=== PATIENT | male | born 1945 | race African-American/Black ===

== ENCOUNTER 2017-02-13 15:43 | Inpatient (IN) | payer MEDICARE ==
[~2017-02-13] VITALS: Ht 175.3 cm; Wt 62.5 kg
[2017-02-13 15:44] VITALS: BP 129/71; PULSE 74; RESP 16; TEMP 99.2; O2SAT 98
--- NOTE | 2017-02-13 16:01 | PD ---
Physical Exam Date Seen by Provider: Feb 13, 2017 Time Seen by Provider: 15:58 Narrative 71 YOBM C/O KIDNEY FAILURE. SENT BY DR MAKI FOR EVAIL. BLOOD WORK SAT. NO CP /SOB/N/V, NOPEDAL EDEMA VS REVIEWED AWAITING BED PLACEMENT Data Data Last Documented VS Vital Signs Date Time Temp Pulse Resp B/P Pulse Ox O2 Delivery O2 Flow Rate FiO2 02/13/17 15:44 99.2 74 16 129/71 98 Room Air MDM Supervised Visit with NIMA: No Scripts No Active Prescriptions or Reported Meds Condition: Domingo Boothe Feb 13, 2017 16:01
--- NOTE | 2017-02-13 20:44 | PD ---
HPI Chief Complaint: Abnormal Results Time Seen by Provider: 20:38 Travel History International Travel<30 days: No Contact w/Intl Traveler<30days: No Traveled to known affect area: No History of Present Illness HPI PATIENT PER SE HAS NO ACTUAL COMPLAINT, BUT dr boucher received abnormal labs suggesting renal failure over weekend, patient advised to come in [facility] Past Medical History Diminished Hearing: No Musculoskeletal: Yes (history of gouty arthritis muscle strains) Immunizations Current: No Social History Alcohol Use: Yes (8 BEERS EVERY DAY) Tobacco Use: Yes (CHEW TOBACCO ) Substance Use: No (DENIES ) Allergies-Medications (Allergen,Severity, Reaction): Coded Allergies: No Known Allergies (Verified , 02/13/17) Reported Meds & Prescriptions Reported Meds & Active Scripts Active Reported Vitamin D-1000 (Cholecalciferol) 1,000 Unit Tab Unknown Dose PO DAILY Vitamin A15-Bkhyo Acid (Cobalamine Combinations) 500-400 Mcg Tab 1 Tab PO DAILY Review of Systems Except as stated in HPI: all other systems reviewed are Neg Physical Exam Narrative GENERAL: SKIN: Warm and dry. HEAD: Atraumatic. Normocephalic. EYES: Pupils equal and round. No scleral icterus. No injection or drainage. ENT: No nasal bleeding or discharge. Mucous membranes pink and moist. NECK: Trachea midline. No JVD. CARDIOVASCULAR: Regular rate and rhythm. RESPIRATORY: No accessory muscle use. Clear to auscultation. Breath sounds equal bilaterally. GASTROINTESTINAL: Abdomen soft, non-tender, nondistended. MUSCULOSKELETAL: Extremities without clubbing, cyanosis, or edema. No obvious deformities. NEUROLOGICAL: Awake and alert. No obvious cranial nerve deficits. Motor grossly within normal limits. Five out of 5 muscle strength in the arms and legs. Normal speech. PSYCHIATRIC: Appropriate mood and affect; insight and judgment normal. Data Data Last Documented VS Vital Signs Date Time Temp Pulse Resp B/P Pulse Ox O2 Delivery O2 Flow Rate FiO2 02/13/17 21:00 47 18 196/79 100 Room Air 02/13/17 15:44 99.2 Orders Electrocardiogram (02/13/17 20:40) Complete Blood Count With Diff (02/13/17 20:40) Comprehensive Metabolic Panel (02/13/17 20:40) Prothrombin Time / Inr (Pt) (02/13/17 20:40) Act Partial Throm Time (Ptt) (02/13/17 20:40) Magnesium (Mg) (02/13/17 20:40) Phosphorus (Po4) (02/13/17 20:40) Chest, Single Ap (02/13/17 20:40) Sodium Chlor 0.9% 1000 Ml Inj (Ns 1000 M (02/13/17 22:01) Admit Order (Ed Use Only) (02/13/17 22:08) Labs Laboratory Tests Test 02/13/17 20:52 White Blood Count 7.7 TH/MM3 Red Blood Count 3.10 MIL/MM3 Hemoglobin 8.2 GM/DL Hematocrit 25.9 % Mean Corpuscular Volume 83.4 FL Mean Corpuscular Hemoglobin 26.5 PG Mean Corpuscular Hemoglobin 31.8 % Concent Red Cell Distribution Width 15.0 % Platelet Count 272 TH/MM3 Mean Platelet Volume 9.4 FL Neutrophils (%) (Auto) 59.4 % Lymphocytes (%) (Auto) 30.1 % Monocytes (%) (Auto) 7.5 % Eosinophils (%) (Auto) 2.3 % Basophils (%) (Auto) 0.7 % Neutrophils # (Auto) 4.6 TH/MM3 Lymphocytes # (Auto) 2.3 TH/MM3 Monocytes # (Auto) 0.6 TH/MM3 Eosinophils # (Auto) 0.2 TH/MM3 Basophils # (Auto) 0.1 TH/MM3 CBC Comment DIFF FINAL Differential Comment Prothrombin Time 11.2 SEC Prothromb Time International 1.0 RATIO Ratio Activated Partial 26.6 SEC Thromboplast Time Sodium Level 142 MEQ/L Potassium Level 3.9 MEQ/L Chloride Level 113 MEQ/L Carbon Dioxide Level 18.8 MEQ/L Anion Gap 10 MEQ/L Blood Urea Nitrogen 59 MG/DL Creatinine 5.45 MG/DL Estimat Glomerular Filtration 13 ML/MIN Rate Random Glucose 95 MG/DL Calcium Level 8.6 MG/DL Phosphorus Level 4.6 MG/DL Magnesium Level 1.8 MG/DL Total Bilirubin 0.4 MG/DL Aspartate Amino Transf 7 U/L (AST/SGOT) Alanine Aminotransferase 8 U/L (ALT/SGPT) Alkaline Phosphatase 49 U/L Total Protein 8.0 GM/DL Albumin 3.1 GM/DL Reticulocyte Count 0.7 % Absolute Reticulocyte Count 21.9 MIL/L MDM Medical Decision Making Medical Screen Exam Complete: Yes Emergency Medical Condition: Yes Medical Record Reviewed: Yes Differential Diagnosis lab error v true renal failure v dehydration v electrolyte abnl Narrative Course PATIENT'S REPEAT LABS DID CONFIRM RENAL FAILURE HOWEVER NO RECENT BLOOD WORK TO ASSESS ACUTENESS OF CONDITION, BUT DID NOTICE ANEMIA WHICH IS C/W CHRONIC KIDNEY DISEASE, PT ASYMPTOMATIC BUT SUSPECT ACUTE ON CHRONIC WORSENING, WITHOUT HYPERKALEMIA Diagnosis Primary Impression: Acute kidney injury superimposed on CKD Admitting Information Admitting Physician Requests: Observation Condition: Stable Romeo Blue MD Feb 13, 2017 20:44
[2017-02-13] MEDS ORDERED: VITA1000 PO (20:46)
[2017-02-13] MEDS ORDERED: VITATAB43 PO (20:46)
[2017-02-13 21:00] VITALS: BP 196/79; PULSE 47; RESP 18; O2SAT 100
--- NOTE | 2017-02-13 21:02 | RADRPT ---
EXAM DATE/TIME: 02/13/2017 20:52 [facility] COMPARISON: CHEST SINGLE AP, August 21, 2013, 23:50. INDICATIONS : Palpitations. Dr dov cortez kidney complaint. MEDICAL HISTORY : None. SURGICAL HISTORY : None. ENCOUNTER: Initial ACUITY: 1 day PAIN SCORE: 0/10 LOCATION: Bilateral chest FINDINGS: A single view of the chest demonstrates the lungs to be symmetrically aerated without evidence of mas s, infiltrate or effusion. The cardiomediastinal contours are unremarkable. Osseous structures are intact. CONCLUSION: No evidence of acute cardiopulmonary disease. Deo Mendenhall MD on February 13, 2017 at 21:00 Board Certified Radiologist. This report was verified electronically.
[2017-02-13 21:33] LABS: AUTOMATED NEUTROPHIL # 4.6 TH/MM3 (1.8-7.7); BASOPHIL # 0.1 TH/MM3 (0-0.2); BASOPHIL % 0.7 % (0.0-2.0); EOSINOPHIL # 0.2 TH/MM3 (0-0.4); EOSINOPHIL % 2.3 % (0.0-4.0); HEMATOCRIT 25.9 % (39.0-51.0); HEMO FLAGS DIFF FINAL; LYMPH % 30.1 % (9.0-44.0); LYMPHOCYTE # 2.3 TH/MM3 (1.0-4.8); MEAN CELL VOLUME 83.4 FL (80.0-100.0); MEAN CORPUSCULAR HEMOGLOBIN 26.5 PG (27.0-34.0); MEAN CORPUSCULAR HGB CONC 31.8 % (32.0-36.0); MONO % 7.5 % (0.0-8.0); NEUT % 59.4 % (16.0-70.0); PLATELET COUNT 272 TH/MM3 (150-450); WHITE BLOOD COUNT 7.7 TH/MM3 (4.0-11.0)
[2017-02-13 21:43] LABS: APTT (PATIENT) 26.6 SEC (24.3-30.1); PROTHROMBIN TIME - PATIENT 11.2 SEC (9.8-11.6)
[2017-02-13 21:55] LABS: ANION GAP 10 MEQ/L (5-15); AST (GOT) 7 U/L (15-37); BICARBONATE 18.8 MEQ/L (21.0-32.0); BLOOD UREA NITROGEN 59 MG/DL (7-18); CHLORIDE 113 MEQ/L (98-107); GLOMERULAR FILTRATION RATE 13 ML/MIN (>89); MAGNESIUM 1.8 MG/DL (1.5-2.5); POTASSIUM 3.9 MEQ/L (3.5-5.1); SODIUM (NA) 142 MEQ/L (136-145)
[2017-02-13 22:00] LABS: ALKALINE PHOSPHATASE 49 U/L (45-117); ALT (GPT) 8 U/L (12-78); TOTAL BILIRUBIN ADULT 0.4 MG/DL (0.2-1.0)
[2017-02-13] MEDS ORDERED: SODIUM CHLOR 0.9% 1000 ML INJ 1,000 ML IV SCH (22:01)
[2017-02-13 23:00] VITALS: BP 183/79; PULSE 51; RESP 16; O2SAT 100
[2017-02-13] MEDS ORDERED: SODIUM CHLORIDE 0.9% FLUSH 10 ML FLUSH IV FLUSH PRN (23:30)
[2017-02-13] MEDS ORDERED: ONDANSETRON HCL 4 MG/2 ML VIAL IVP PRN (23:30)
[2017-02-13] MEDS ORDERED: ACETAMINOPHEN 325 MG TAB PO PRN (23:30)
[2017-02-13] MEDS ORDERED: NALOXONE HCL 0.4 MG/ML AMP IV PRN (23:30)
[2017-02-13 23:44] VITALS: BP 199/83; PULSE 50; RESP 18; O2SAT 100
[2017-02-14] VITALS (9 sets, daily range): BP systolic 121–200; BP diastolic 63–89; PULSE 45–74; RESP 18; TEMP 97.1–98.7; O2SAT 98–100
[2017-02-14 00:07] LABS: RETIC % 0.7 % (0.4-3.0); REVIEW FLAG FINAL
--- NOTE | 2017-02-14 00:16 | EKG ---
Date Performed: 02/13/2017 Time Performed: 20:54:37 PTAGE: 71 years EKG: SINUS BRADYCARDIA BORDERLINE LEFT AXIS DEVIATION VOLTAGE CRITERIA FOR LVH ABNORMAL ECG PREVIOUS TRACING : 02/13/2017 20.53 Compared to the previous tracing, rate has decreased and cr itieria for LVH now noted DOCTOR: Yehuda Dunbar Interpretating Date/Time 02/14/2017 00:16:02
[2017-02-14] MEDS: cloNIDine HCL 0.1 MG TAB PO PRN ×2 (00:35→08:13)
[2017-02-14] MEDS: HEPARIN SODIUM - SQ 10,000 UNITS/ML VIAL SQ SCH ×2 (08:13→22:13)
[2017-02-14 08:19] LABS: AUTOMATED NEUTROPHIL # 3.5 TH/MM3 (1.8-7.7); BASOPHIL % 0.8 % (0.0-2.0); EOSINOPHIL # 0.2 TH/MM3 (0-0.4); EOSINOPHIL % 3.2 % (0.0-4.0); HEMATOCRIT 23.1 % (39.0-51.0); HEMO FLAGS DIFF FINAL; LYMPH % 32.4 % (9.0-44.0); MEAN CELL VOLUME 81.8 FL (80.0-100.0); MEAN CORPUSCULAR HEMOGLOBIN 28.1 PG (27.0-34.0); MEAN CORPUSCULAR HGB CONC 34.3 % (32.0-36.0); MONO % 7.5 % (0.0-8.0); NEUT % 56.1 % (16.0-70.0); PLATELET COUNT 213 TH/MM3 (150-450); RED BLOOD COUNT 2.83 MIL/MM3 (4.50-5.90); RED CELL DISTRIBUTION WIDTH 14.5 % (11.6-17.2); WHITE BLOOD COUNT 6.2 TH/MM3 (4.0-11.0)
[2017-02-14] MEDS: SODIUM CHLORIDE 0.9% FLUSH 10 ML FLUSH IV FLUSH SCH ×2 (08:20→22:13)
[2017-02-14 08:32] LABS: ANION GAP 11 MEQ/L (5-15); BICARBONATE 18.5 MEQ/L (21.0-32.0); BLOOD UREA NITROGEN 56 MG/DL (7-18); CHLORIDE 115 MEQ/L (98-107); GLOMERULAR FILTRATION RATE 13 ML/MIN (>89); POTASSIUM 3.7 MEQ/L (3.5-5.1); SODIUM (NA) 144 MEQ/L (136-145)
[2017-02-14 08:57] LABS: FERRITIN 296 NG/ML (26-388); TRANSFERRIN IRON PROFILE 183 MG/DL (200-360)
[2017-02-14] MEDS ORDERED: cloNIDine HCL 0.1 MG TAB PO PRN (09:15)
[2017-02-14] MEDS ORDERED: PILL SPLITTER OTHER PRN (09:30)
[2017-02-14] MEDS: FERROUS SULFATE 325 MG (65 MG ELEMENTAL IRON) TAB PO SCH ×2 (09:44→22:13)
[2017-02-14] MEDS: FOLIC ACID 1 MG TAB PO SCH (09:44)
[2017-02-14] MEDS: CYANOCOBALAMIN 1,000 MCG TAB PO SCH (09:44)
--- NOTE | 2017-02-14 09:51 | MH ---
cc: JAMARI KEITA MD DATE OF ADMISSION 02/13/2017 CHIEF COMPLAINT Abnormal labs high BUN, creatinine sent from the PCP office. BUN was 56, creatinine was 5.24. HISTORY OF PRESENT ILLNESS This is a 71-year-old -Luxembourger male with past medical-surgical history significant for gouty arthritis not taking any medication who came to the ER at [facility] with abnormal labs with a BUN of 56, creatinine of 5.24 and 5.45 around that area. The patient denies a history of any kidney problems. The patient denies any chest pain, shortness of breath, any abnormal bleeding in the urine or any painful urination, or burning urination. Denies any decreased urination. Denies any fever, chills or cough. Denies any chest pain. Denies any sore throat. Denies any nausea, vomiting, diarrhea, constipation. Denies any complaint. Other than that, nothing significant. PAST MEDICAL HISTORY As dictated above. PAST SURGICAL HISTORY Nothing significant. SOCIAL HISTORY He drink a beer every day and chews tobacco and denies any drug abuse. He lives at home with his . He is retired. FAMILY HISTORY Nothing significant. ALLERGIES NO KNOWN DRUG ALLERGIES. MEDICATIONS None REVIEW OF SYSTEMS All review of systems are negative. PHYSICAL EXAMINATION This is a 71-year male laying on the bed not in acute distress. VITAL SIGNS: Temperature 97.5, heart rate 48, respiration 18, blood pressure 196/89, O2 saturation 98% room air. HEENT: Normocephalic, atraumatic. EOMI. PERRL. Oral mucosa moist. NECK: Supple. No visible thyromegaly or neck mass. Trachea central. CVS: Regular rate and rhythm. Respiration is clear to auscultation bilaterally. ABDOMEN: Soft, nontender. Bowel sounds audible. EXTREMITIES: No pedal edema. No cyanosis or clubbing. Full range of motion of all extremities. NEUROLOGIC: Awake, alert, and oriented x4. No focal deficits. SKIN: Warm and dry. PSYCH: The patient is cooperative. Mood and affect is normal. LABORATORY DATA CBC shows a WBC count of 6.2, RBC count is low 2.83, hemoglobin 7.9 low, hematocrit 23.1 low. PT 11.0, INR and APTT 26.1. BMP shows sodium of 144, potassium of 3.7, chloride 115 high, and carbon 18.5 low, BUN 56 high, creatinine 5.24 high, GFR 30 low, calcium 8.3 low, iron 29 low, iron saturation 11.3 low, TIBC 256. LFTs are normal. Albumin 3.1 low, B12 is 1367 high, folate 10.7 normal. Chest x-ray was done shows no evidence of acute abnormality. ASSESSMENT AND PLAN This is a 71-year male who came to the ER diagnosed with: 1. Acute renal failure, etiology is unknown. Nephrology consulted. Further recommendation per nephrology. 2. Anemia. The patient has iron deficiency. The patient started on an iron pill and I also check fecal occult blood test to rule out GI bleed. 3. A history of arthritis. 4. DVT prophylaxis, heparin 5000 units subcutaneous twice a day. 5. GI prophylaxis Protonix 40 mg. 6. Hypertension. The patient started on Norvasc 10 mg p.o. daily and also clonidine 0.1 mg p.o. q. 6-hour if BP above 160/90. 7. I am going to manage the patient on a daily basis and make Recommendations on a daily basis. Jamari Keita MD EA/MARY /9:15 AM /9:38 AM
--- NOTE | 2017-02-14 10:42 | RADRPT ---
EXAM DATE/TIME: 02/14/2017 09:11 1[facility] COMPARISON: No previous studies available for comparison. INDICATIONS : Increased BUN/Creatinine levels. MEDICAL HISTORY : Hypertension. Renal failure. Prostate cancer. Gout. SURGICAL HISTORY : Bilateral cataract repair. ENCOUNTER: Initial ACUITY: 1 day PAIN SCORE: 2/10 LOCATION: Bilateral flank MEASUREMENTS: RIGHT KIDNEY: 12.5 x 6.2 x 6.2 cm LEFT KIDNEY: 11.6 x 5.3 x 6.3 cm FINDINGS: RIGHT KIDNEY: There is moderate hydronephrosis with dilatation of collecting system and renal pelvis. There is no f ocal mass or calculi identified. LEFT KIDNEY: There is moderate hydronephrosis with dilatation of collecting system and renal pelvis. There is no f ocal mass or calculi identified. BLADDER: The bladder demonstrates trabeculation of portions of the wall without distinct mass. There is a cyst ic structure along the right side of the bladder measuring up to 3.8 x 3.4 x 3.6 cm. CONCLUSION: 1. Moderate bilateral hydronephrosis. 2. Abnormal bladder with trabeculation and wall thickening without distinct mass. 3. Cystic structure along the right side of the bladder.of unclear significance. Freddy Livingston MD on February 14, 2017 at 10:38 Board Certified Radiologist. This report was verified electronically.
[2017-02-14 10:45] LABS: BLOOD, URINE SMALL (NEG); COMMENT (UR) CULT NOT INDICATED; CULTURE IF INDICATED CULT NOT INDICATED; GLUCOSE,URINE NEG (NEG); KETONE, URINE NEG (NEG); NITRITE,URINE NEG (NEG); SQUAMOUS EPITHELIAL CELL URINE <1 /hpf (0-5); URINE COLOR LIGHT-YELLOW (YELLW/STRAW)
[2017-02-14] MEDS: PANTOPRAZOLE SOD 40 MG DELAYED RELEASE TAB PO SCH (11:53)
[2017-02-14] MEDS: SENNOSIDES 8.6 MG TAB PO PRN (11:54)
--- NOTE | 2017-02-14 15:27 | PD.CONS ---
[facility] Service Nephrology Consult Requested By Reason for Consult Acute on CKD Primary Care Physician Erik Chisholm III, MD History of Present Illness This is a quiet 71 y/o AAM who is here with his at bedside. He was sent in by PCP for evaluation of renal failure. In 2013 his creatinine was 1.0, in November it measured 2.6 with GFR of 27, consistent with CKD 4. He came today with no physical complaints. Creatinine here measured 5.45 that improved to 5.24 today. He also has a metabolic acidosis with C02 of 18. He has not had proteinuria in the past. His was able to provide a copy of labs from 2016 that I am referencing. Included is a PSA of 8, noted anemia with Hb of 8.7. This morning we had the nurse perform a bladder scan that revealed retention with over 450 ml urine, therefore a santamaria was placed. Renal US also showing moderate bilateral hydronephrosis. There is only a history of gout and vitamin D deficiency reported. He is also anemic here with Hb 7.9, denies dark stool or other bleeding. We were consulted for renal management. He is also noted to be hypertensive this admission. (Kenyatta Gramajo) Review of Systems Constitutional: COMPLAINS OF: Fatigue, DENIES: Change in appetite Genitourinary: COMPLAINS OF: Urinary frequency, Urgency, Dysuria, Nocturia Musculoskeletal: DENIES: Joint pain (Kenyatta Gramajo) Past Family Social History Allergies: Coded Allergies: No Known Allergies (Verified , 02/13/17) Past Medical History Gouty arthritis appears to have CKD 4, in November his creatinine was 2.6,, GFR 27 elevated PSA vitamin D deficiency anemia Past Surgical History None Reported Medications Vitamin B12 Vitamin D3 Active Ordered Medications Current Medications Medications (Trade) Dose Ordered Sig/Jade Route Start Time Stop Time Status Last Admin (NS Flush) 2 ml UNSCH PRN IV FLUSH 02/13/17 23:30 (NS Flush) 2 ml BID IV FLUSH 02/14/17 09:00 02/14/17 08:20 (Tylenol) 650 mg Q4H PRN PO 02/13/17 23:30 (Zofran Inj) 4 mg Q6H PRN IVP 02/13/17 23:30 (Heparin Inj) 5,000 units Q12H SQ 02/14/17 09:00 02/14/17 08:13 (Narcan Inj) 0.4 mg UNSCH PRN IV 02/13/17 23:30 (Milk Of Magnesia Liq) 30 ml Q12H PRN PO 02/13/17 23:30 (Senokot) 17.2 mg Q12H PRN PO 02/13/17 23:30 02/14/17 11:54 (Catapres) 0.1 mg Q6H PRN PO 02/14/17 09:15 (Folate) 1 mg DAILY PO 02/14/17 09:15 02/14/17 09:44 (Norvasc) 10 mg DAILY PO 02/14/17 09:15 02/14/17 09:44 (Ferrous Sulfate) 325 mg BID PO 02/14/17 09:30 02/14/17 09:44 (Vitamin B12) 500 mcg DAILY PO 02/14/17 09:21 02/14/17 09:44 (Pill Splitter) 1 ea UNSCH PRN OTHER 02/14/17 09:30 (Protonix) 40 mg DAILY PO 02/14/17 11:15 02/14/17 11:53 Family History No hx of renal disorders Social History he chews tobacco, no cigarette smoking former ETOH, no use in past 2 months 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 full code (Kenyatta Gramajo) Physical Exam Vital Signs Vital Signs Date Time Temp Pulse Resp B/P Pulse Ox O2 Delivery O2 Flow Rate FiO2 02/14/17 13:05 98.1 50 18 180/83 100 02/14/17 07:56 97.5 48 18 196/89 98 02/14/17 03:20 98.7 46 18 194/84 100 02/14/17 02:16 44 16 182/83 100 02/14/17 01:47 45 180/84 02/14/17 00:40 97.1 51 18 200/83 100 Room Air 02/14/17 00:03 21 02/13/17 23:44 50 18 199/83 100 Room Air 02/13/17 23:00 51 16 183/79 100 Room Air 02/13/17 21:00 47 18 196/79 100 Room Air 02/13/17 15:44 99.2 74 16 129/71 98 Room Air Physical Exam Elderly AAM sitting up in bed awake, alert, oriented but quiet and slow to respond CV: S1/S2, RRR no murmurs Lungs: clear Abd: soft, non tender Ext: no edema, distal pulses intact Laboratory Laboratory Tests Test 02/13/17 02/14/17 02/14/17 20:52 07:34 09:15 White Blood Count 7.7 6.2 Red Blood Count 3.10 2.83 Hemoglobin 8.2 7.9 Hematocrit 25.9 23.1 Mean Corpuscular Volume 83.4 81.8 Mean Corpuscular Hemoglobin 26.5 28.1 Mean Corpuscular Hemoglobin 31.8 34.3 Concent Red Cell Distribution Width 15.0 14.5 Platelet Count 272 213 Mean Platelet Volume 9.4 9.3 Neutrophils (%) (Auto) 59.4 56.1 Lymphocytes (%) (Auto) 30.1 32.4 Monocytes (%) (Auto) 7.5 7.5 Eosinophils (%) (Auto) 2.3 3.2 Basophils (%) (Auto) 0.7 0.8 Neutrophils # (Auto) 4.6 3.5 Lymphocytes # (Auto) 2.3 2.0 Monocytes # (Auto) 0.6 0.5 Eosinophils # (Auto) 0.2 0.2 Basophils # (Auto) 0.1 0.0 CBC Comment DIFF FINAL DIFF FINAL Differential Comment Prothrombin Time 11.2 Prothromb Time International 1.0 Ratio Activated Partial 26.6 Thromboplast Time Sodium Level 142 144 Potassium Level 3.9 3.7 Chloride Level 113 115 Carbon Dioxide Level 18.8 18.5 Anion Gap 10 11 Blood Urea Nitrogen 59 56 Creatinine 5.45 5.24 Estimat Glomerular Filtration 13 13 Rate Random Glucose 95 74 Calcium Level 8.6 8.3 Phosphorus Level 4.6 Magnesium Level 1.8 Total Bilirubin 0.4 Aspartate Amino Transf 7 (AST/SGOT) Alanine Aminotransferase 8 (ALT/SGPT) Alkaline Phosphatase 49 Total Protein 8.0 Albumin 3.1 Reticulocyte Count 0.7 Absolute Reticulocyte Count 21.9 Iron Level 29 Total Iron Binding Capacity 256 Percent Iron Saturation 11.3 Ferritin 296 Vitamin B12 Level 1367 Folate 10.7 Urine Color LIGHT-YELLOW Urine Turbidity CLEAR Urine pH 5.0 Urine Specific [place] 1.007 Urine Protein NEG Urine Glucose (UA) NEG Urine Ketones NEG Urine Occult Blood SMALL Urine Nitrite NEG Urine Bilirubin NEG Urine Urobilinogen LESS THAN 2.0 Urine Leukocyte Esterase SMALL Urine RBC 1 Urine WBC 3 Urine Squamous Epithelial <1 Cells Microscopic Urinalysis Comment CULT NOT INDICATED (Kenyatta Gramajo) Result Diagram: 02/14/17 0734 02/14/17 0734 Imaging Last 72 hours Impressions Renal Ultrasound 02/14/17 0000 Signed Impressions: Service Date/Time: Tuesday, February 14, 2017 09:11 - CONCLUSION: 1. Moderate bilateral hydronephrosis. 2. Abnormal bladder with trabeculation and wall thickening without distinct mass. 3. Cystic structure along the right side of the bladder.of unclear significance. Freddy Livingston MD Chest X-Ray 02/13/172039 Signed Impressions: Service Date/Time: Monday, February 13, 2017 20:52 - CONCLUSION: No evidence of acute cardiopulmonary disease. Deo Mendenhall MD (Kenyatta Gramajo) Assessment and Plan Problem List: (1) Acute kidney injury superimposed on CKD Plan: It appears he has CKD 4, with no prior proteinuria may have underlying nephrosclerosis HAI from obstructive uropathy, renal US report reviewed a Santamaria was placed, now has developed hematuria likely due to bladder stretching I will start Flomax 0.4 mg daily he has elevated PSA, may need urology evaluation acidosis should improve as renal function recovers he does not require IVF repeat renal panel in AM, follow urine output avoid nephrotoxic medications serum electrophoresis has been ordered, also check serum phosphorus level (2) Anemia Plan: He has evidence of iron deficiency give IV venofer and follow Hb stool for occult bleeding has been ordered (3) Hypertension Plan: he is not on antihypertensives at home noted to be bradycardic here, stop clonidine he is on Norvasc, start hydralazine and titrate as needed avoid MARTINA currently (Kenyatta Gramajo) Assessment and Plan patient was seen and examined. Agree with above assessment and plan. I discussed with the patient and his . I have independently reviewed previous labs supplied by the . His creatinine was about 2.6 in November. I ordered bladder scan and renal US. There is evidence of obstructive uropathy. Also, he has elevated PSA. Patient had Santamaria placed. May need Urology evaluation as he may have prostate cancer. Monitor renal function, anemia, and BP (Brenden Lora MD) Kenyatta GramajoP Feb 14, 2017 15:27 Brenden Lora MD Feb 14, 2017 18:12
[2017-02-14] MEDS: IRON SUCROSE INJ 100 MG in SODIUM CHLORIDE 0.9% INJ 100 ML IV SCH (16:47)
[2017-02-14 17:00] LABS: TOTAL PROTEIN SPE 6.8 GM/DL (6.0-7.6)
[2017-02-14] MEDS: hydrALAZINE HCL 10 MG TAB PO SCH (22:14)
[2017-02-14 22:32] LABS: ALBUMIN SPE 3.43 GM/DL (3.50-5.00); ALPHA 1 GLOBULIN 0.25 GM/DL (0.11-0.29); ALPHA 2 GLOBULIN 0.63 GM/DL (0.22-1.00); BETA GLOBULINS (SPE) 0.8 GM/DL (0.53-1.03)
[2017-02-15 01:23] VITALS: BP 137/71; PULSE 67; RESP 17; TEMP 97.7; O2SAT 98
[2017-02-15] MEDS: hydrALAZINE HCL 10 MG TAB PO SCH ×3 (05:43→21:50)
[2017-02-15 06:28] LABS: AUTOMATED NEUTROPHIL # 6.9 TH/MM3 (1.8-7.7); BASOPHIL # 0.1 TH/MM3 (0-0.2); BASOPHIL % 0.5 % (0.0-2.0); EOSINOPHIL # 0.2 TH/MM3 (0-0.4); EOSINOPHIL % 2.2 % (0.0-4.0); HEMATOCRIT 22.7 % (39.0-51.0); HEMO FLAGS DIFF FINAL; LYMPH % 20.7 % (9.0-44.0); LYMPHOCYTE # 2.1 TH/MM3 (1.0-4.8); MEAN CELL VOLUME 82.4 FL (80.0-100.0); MEAN CORPUSCULAR HEMOGLOBIN 26.9 PG (27.0-34.0); MEAN CORPUSCULAR HGB CONC 32.6 % (32.0-36.0); MONO % 7.5 % (0.0-8.0); NEUT % 69.1 % (16.0-70.0); PLATELET COUNT 268 TH/MM3 (150-450); RED BLOOD COUNT 2.75 MIL/MM3 (4.50-5.90); RED CELL DISTRIBUTION WIDTH 14.6 % (11.6-17.2); WHITE BLOOD COUNT 9.9 TH/MM3 (4.0-11.0)
[2017-02-15 06:52] LABS: ANION GAP 10 MEQ/L (5-15); AST (GOT) 5 U/L (15-37); BICARBONATE 19.5 MEQ/L (21.0-32.0); BLOOD UREA NITROGEN 61 MG/DL (7-18); CHLORIDE 114 MEQ/L (98-107); GLOMERULAR FILTRATION RATE 15 ML/MIN (>89); POTASSIUM 3.5 MEQ/L (3.5-5.1); SODIUM (NA) 143 MEQ/L (136-145)
[2017-02-15 06:55] LABS: ALKALINE PHOSPHATASE 46 U/L (45-117); ALT (GPT) 7 U/L (12-78); TOTAL BILIRUBIN ADULT 0.6 MG/DL (0.2-1.0)
[2017-02-15 08:00] VITALS: BP 140/69; PULSE 64; RESP 19; TEMP 97.5; O2SAT 98
[2017-02-15] MEDS: SODIUM CHLORIDE 0.9% FLUSH 10 ML FLUSH IV FLUSH SCH ×2 (09:00→21:53)
[2017-02-15] MEDS: IRON SUCROSE INJ 100 MG in SODIUM CHLORIDE 0.9% INJ 100 ML IV SCH (09:16)
[2017-02-15] MEDS: HEPARIN SODIUM - SQ 10,000 UNITS/ML VIAL SQ SCH ×2 (09:16→21:53)
[2017-02-15] MEDS: PANTOPRAZOLE SOD 40 MG DELAYED RELEASE TAB PO SCH (09:17)
[2017-02-15] MEDS: FOLIC ACID 1 MG TAB PO SCH (09:17)
[2017-02-15] MEDS: CYANOCOBALAMIN 1,000 MCG TAB PO SCH (09:17)
[2017-02-15] MEDS: FERROUS SULFATE 325 MG (65 MG ELEMENTAL IRON) TAB PO SCH ×2 (09:17→21:50)
--- NOTE | 2017-02-15 09:52 | HHI.PR ---
Subjective History of Present Illness Patient feel weak and tired nephrology input noted work up in progress still high BUN / Creatinine. HAI from obstructive uropathy, renal US report reviewed a Montoya was placed, now has developed hematuria likely due to bladder stretching , started Flomax 0.4 mg daily, follow urine output, avoid nephrotoxic medications serum electrophoresis has been ordered, also check serum phosphorus level, acidosis should improve as renal function recovers, elevated PSA, may need urology evaluation Review of Systems Constitutional Constitutional: Fatigue, Weakness Vitals/Results Intake & Output 02/14/17 02/14/17 02/15/17 14:59 22:59 06:59 Intake Total 280 ml Output Total 650 ml 1100 ml 1000 ml Balance -650 ml -1100 ml -720 ml Intake Oral 280 ml Output Urine Total 650 ml 1100 ml 1000 ml Bladder Scan Volume Amount 467 ml 467 ml Vital Signs Vital Signs Date Time Temp Pulse Resp B/P Pulse Ox O2 Delivery O2 Flow Rate FiO2 02/15/17 01:23 97.7 67 17 137/71 98 02/14/17 23:41 98 02/14/17 19:41 98.7 69 18 121/63 99 02/14/17 17:42 98.1 74 18 122/65 99 02/14/17 13:05 98.1 50 18 180/83 100 CBC/BMP: 02/15/17 0549 02/15/17 0549 Lab Results Laboratory Tests Test 02/14/17 02/15/17 14:55 05:49 Total Protein 6.8 GM/DL 7.6 GM/DL Albumin 3.43 GM/DL 2.8 GM/DL Albumin/Globulin Ratio 1.02 Ieiqe-7-Ycmhlbfbd 0.25 GM/DL Nogxu-1-Zimlnzhcr 0.63 GM/DL Beta Globulins 0.80 GM/DL Gamma Globulins 1.69 GM/DL White Blood Count 9.9 TH/MM3 Red Blood Count 2.75 MIL/MM3 Hemoglobin 7.4 GM/DL Hematocrit 22.7 % Mean Corpuscular Volume 82.4 FL Mean Corpuscular Hemoglobin 26.9 PG Mean Corpuscular Hemoglobin 32.6 % Concent Red Cell Distribution Width 14.6 % Platelet Count 268 TH/MM3 Mean Platelet Volume 8.9 FL Neutrophils (%) (Auto) 69.1 % Lymphocytes (%) (Auto) 20.7 % Monocytes (%) (Auto) 7.5 % Eosinophils (%) (Auto) 2.2 % Basophils (%) (Auto) 0.5 % Neutrophils # (Auto) 6.9 TH/MM3 Lymphocytes # (Auto) 2.1 TH/MM3 Monocytes # (Auto) 0.7 TH/MM3 Eosinophils # (Auto) 0.2 TH/MM3 Basophils # (Auto) 0.1 TH/MM3 CBC Comment DIFF FINAL Differential Comment Sodium Level 143 MEQ/L Potassium Level 3.5 MEQ/L Chloride Level 114 MEQ/L Carbon Dioxide Level 19.5 MEQ/L Anion Gap 10 MEQ/L Blood Urea Nitrogen 61 MG/DL Creatinine 4.75 MG/DL Estimat Glomerular Filtration 15 ML/MIN Rate Random Glucose 87 MG/DL Calcium Level 8.3 MG/DL Phosphorus Level 3.8 MG/DL Total Bilirubin 0.6 MG/DL Aspartate Amino Transf 5 U/L (AST/SGOT) Alanine Aminotransferase 7 U/L (ALT/SGPT) Alkaline Phosphatase 46 U/L Physical Exam General General Appearance: No Acute Distress, Comfortable Eyes Eye Exam: Sclera White, Extraocular Movement Intact Throat Throat Exam: Oral Mucosa [place] & Moist, Oral Pharynx Normal Neck Neck Exam: Neck Supple, Trachea Midline Pulmonary Resp Exam: Clear Bilaterally, Breath Sounds Equal, No Distress Cardiology CV Exam: Regular, Normal Sinus Rhythm Gastrointestinal/Abdomen GI Exam: Soft, Non-Tender, Bowel Sounds Present Musculoskeletal MS Exam: Joints Intact Integumentary Skin Exam: Clear, Warm, Dry Neurologic Neuro Exam: Alert, Awake, Oriented, Speech Clear, Moving All Extremities, No Focal Deficits VTE Prophylaxis VTE Prophylaxis Meds: Heparin PUD Prophylasis PUD Prophylaxis: Protonix Assessment/Plan Assessment/Plan ASSESSMENT AND PLAN This is a 71-year male who came to the ER diagnosed with: 1. Acute renal failure, etiology is unknown. Nephrology input noted.Per nephrology HAI from obstructive uropathy, renal US report reviewed, a Montoya was placed, developed hematuria likely due to bladder stretching, started Flomax 0.4 mg daily, follow urine output, avoid nephrotoxic medications serum electrophoresis has been ordered, also check serum phosphorus level, acidosis should improve as renal function recovers, elevated PSA, need urology evaluation consulted urology. Further recommendation per nephrology. 2. Anemia. The patient has iron deficiency. The patient started on an iron oral and IV and I also check fecal occult blood test to rule out GI bleed. on B12 and Folic acid replacement. 3. A history of arthritis. 4. DVT prophylaxis, heparin 5000 units subcutaneous twice a day. 5. GI prophylaxis Protonix 40 mg. 6. Hypertension. The patient started on Norvasc 10 mg p.o. daily and also clonidine 0.1 mg p.o. q. 6-hour if BP above 160/90. I am going to manage the patient on a daily basis and make Recommendations on a daily basis. Discussed Condition with: Patient Jamari Whitlock MD Feb 15, 2017 09:52
[2017-02-15 11:14] VITALS: O2SAT 98
[2017-02-15 12:00] VITALS: BP_SYST 121; BP_SYST 140; BP_DIAS 59; BP_DIAS 64; PULSE 60; PULSE 75; RESP 19; RESP 20; TEMP 98.1; TEMP 98.3; O2SAT 100; O2SAT 96
--- NOTE | 2017-02-15 15:46 | HHI.NPPN ---
Subjective General Problems: Anemia Renal Failure: Chronic, Acute, Stage IV Interval History He appears comfortable. Creatinine is better. He is non oliguric. (Kenyatta Gramajo) Review of Systems General Constitutional: Fatigue (Kenyatta Gramajo) Objective Data Data 02/14/17 02/15/17 19:00 07:00 Intake Total 280 ml Output Total 1750 ml 1000 ml Balance -1750 ml -720 ml Intake Oral 280 ml Output Urine Total 1750 ml 1000 ml Bladder Scan Volume Amount 467 ml 467 ml Vital Signs Date Time Temp Pulse Resp B/P Pulse Ox O2 Delivery O2 Flow Rate FiO2 02/15/17 12:00 98.1 75 20 140/64 96 02/15/17 11:14 98 02/15/17 08:00 97.5 64 19 140/69 98 02/15/17 01:23 97.7 67 17 137/71 98 02/14/17 23:41 98 02/14/17 19:41 98.7 69 18 121/63 99 02/14/17 17:42 98.1 74 18 122/65 99 (Kenyatta Gramajo) -: 02/15/17 0549 02/15/17 0549 Microbiology 02/15/17 Stool Occult Blood (ARUNA) - Final, Complete HEMOCCULT NEGATIVE Imaging Last 72 hours Impressions Renal Ultrasound 02/14/17 0000 Signed Impressions: Service Date/Time: Tuesday, February 14, 2017 09:11 - CONCLUSION: 1. Moderate bilateral hydronephrosis. 2. Abnormal bladder with trabeculation and wall thickening without distinct mass. 3. Cystic structure along the right side of the bladder.of unclear significance. Freddy Livingston MD Chest X-Ray 02/13/172039 Signed Impressions: Service Date/Time: Monday, February 13, 2017 20:52 - CONCLUSION: No evidence of acute cardiopulmonary disease. Deo Mendenhall MD Tubes & Lines: Santamaria (Kenyatta Gramajo) Physical Exam General Appearance: Well Developed, No Acute Distress, Comfortable (Kenyatta Gramajo) Eyes Eye Exam: Sclera White, Extraocular Movement Intact (Kenyatta Gramajo) Throat Throat Exam: Oral Mucosa [place] & Moist, Oral Pharynx Normal (Kenyatta Gramajo) Neck Neck Exam: Neck Supple, Trachea Midline (Kenyatta Gramajo) Pulmonary Resp Exam: Clear Bilaterally, Breath Sounds Equal, No Distress (Kenyatta Gramajo) Cardiology CV Exam: Regular, Normal Sinus Rhythm (Kenyatta Gramajo) Gastrointestinal/Abdomen GI Exam: Soft, Non-Tender, Bowel Sounds Present (Kenyatta Gramajo) Musculoskeletal MS Exam: Joints Intact, Normal Tone, Good Strength (Kenyatta Gramajo) Integumentary Skin Exam: Clear, Warm, Dry, Intact (Kenyatta Gramajo) Extremeties Extremities Exam: No Edema, Pedal Pulses Palpable (Kenyatta Gramajo) Neurologic Neuro Exam: Alert, Awake, Oriented, Speech Clear, Moving All Extremities, No Focal Deficits (Kenyatta Gramajo) Psychiatric Psych Exam: Appropriate Responses (Kenyatta Gramajo) PUD Prophylasis PUD Prophylaxis: Protonix (Kenyatta Gramajo) Assessment/Plan Discussed Condition With: Patient Assessment Summary: Anemia of CKD, Hypertension, CKD Stage IV Problem List: (1) Acute kidney injury superimposed on CKD Plan: It appears he has underlying CKD 4, with no prior proteinuria suggesting underlying nephrosclerosis HAI from obstructive uropathy, s/p santamaria placement he is on flomax urology called for elevated PSA evaluation acidosis improving as renal function recovers he does not require IVF, oral intake encouraged repeat renal panel in AM, follow urine output avoid nephrotoxic medications serum electrophoresis is normal (2) Anemia Plan: He has evidence of iron deficiency, on IV venofer and oral ferrous sulfate stool for occult bleeding negative (3) Hypertension Plan: started on Norvasc and hydralazine avoid MARTINA currently (Kenyatta Gramajo) Plan patient was seen and examined. Agree with above assessment and plan. Renal function has improved. Needs urology evaluation and followup, has prostate cancer with obstructive uropathy. (Brenden Lora MD) Kenyatta Gramajo Feb 15, 2017 15:46 Brenden Lora MD Feb 16, 2017 20:24
[2017-02-15 16:00] VITALS: BP 119/65; PULSE 63; RESP 19; TEMP 97.9; O2SAT 99
[2017-02-15 20:00] VITALS: BP 101/57; PULSE 66; RESP 18; TEMP 98.7; O2SAT 97
[2017-02-16] VITALS (7 sets, daily range): BP systolic 109–136; BP diastolic 56–69; PULSE 60–68; RESP 18–20; TEMP 97.1–98.4; O2SAT 95–100
[2017-02-16] MEDS: hydrALAZINE HCL 10 MG TAB PO SCH ×3 (04:56→21:40)
[2017-02-16 07:15] LABS: AUTOMATED NEUTROPHIL # 5.8 TH/MM3 (1.8-7.7); BASOPHIL # 0.1 TH/MM3 (0-0.2); BASOPHIL % 0.5 % (0.0-2.0); EOSINOPHIL # 0.5 TH/MM3 (0-0.4); EOSINOPHIL % 4.8 % (0.0-4.0); HEMATOCRIT 25.2 % (39.0-51.0); HEMO FLAGS DIFF FINAL; LYMPH % 26.6 % (9.0-44.0); LYMPHOCYTE # 2.6 TH/MM3 (1.0-4.8); MEAN CELL VOLUME 82.1 FL (80.0-100.0); MEAN CORPUSCULAR HEMOGLOBIN 27.5 PG (27.0-34.0); MEAN CORPUSCULAR HGB CONC 33.5 % (32.0-36.0); MONO % 7.5 % (0.0-8.0); NEUT % 60.6 % (16.0-70.0); PLATELET COUNT 243 TH/MM3 (150-450); RED BLOOD COUNT 3.07 MIL/MM3 (4.50-5.90); RED CELL DISTRIBUTION WIDTH 14.6 % (11.6-17.2); WHITE BLOOD COUNT 9.6 TH/MM3 (4.0-11.0)
[2017-02-16 07:21] LABS: ALT (GPT) 6 U/L (12-78); ANION GAP 10 MEQ/L (5-15); AST (GOT) 8 U/L (15-37); BICARBONATE 20.9 MEQ/L (21.0-32.0); BLOOD UREA NITROGEN 55 MG/DL (7-18); CHLORIDE 109 MEQ/L (98-107); GLOMERULAR FILTRATION RATE 17 ML/MIN (>89); POTASSIUM 3.5 MEQ/L (3.5-5.1); SODIUM (NA) 140 MEQ/L (136-145)
[2017-02-16 07:24] LABS: ALKALINE PHOSPHATASE 42 U/L (45-117); TOTAL BILIRUBIN ADULT 0.5 MG/DL (0.2-1.0)
[2017-02-16] MEDS: HEPARIN SODIUM - SQ 10,000 UNITS/ML VIAL SQ SCH ×2 (09:34→21:41)
[2017-02-16] MEDS: PANTOPRAZOLE SOD 40 MG DELAYED RELEASE TAB PO SCH (09:34)
[2017-02-16] MEDS: FOLIC ACID 1 MG TAB PO SCH (09:34)
[2017-02-16] MEDS: CYANOCOBALAMIN 1,000 MCG TAB PO SCH (09:34)
[2017-02-16] MEDS: IRON SUCROSE INJ 100 MG in SODIUM CHLORIDE 0.9% INJ 100 ML IV SCH (09:35)
[2017-02-16] MEDS: FERROUS SULFATE 325 MG (65 MG ELEMENTAL IRON) TAB PO SCH ×2 (09:35→21:40)
[2017-02-16] MEDS: SODIUM CHLORIDE 0.9% FLUSH 10 ML FLUSH IV FLUSH SCH ×2 (09:36→21:43)
--- NOTE | 2017-02-16 09:53 | HHI.PR ---
Subjective History of Present Illness Patient feel better nephrology input noted work up in progress still high BUN / Creatinine. HAI from obstructive uropathy, renal US report reviewed a Montoya was placed, now has developed hematuria likely due to bladder stretching , on Flomax 0.4 mg daily, follow urine output, avoid nephrotoxic medications serum electrophoresis has been ordered, also check serum phosphorus level, acidosis should improve as renal function recovers, elevated PSA, urology input noted. He is comfortable today. Creatinine has improved. Adequate urine output. Review of Systems Constitutional Constitutional: Fatigue, Weakness Vitals/Results Intake & Output 02/15/17 02/15/17 02/16/17 15:00 23:00 07:00 Intake Total 1080 ml 240 ml 120 ml Output Total 750 ml 750 ml 450 ml Balance 330 ml -510 ml -330 ml Intake Oral 1080 ml 240 ml 120 ml Output Urine Total 750 ml 750 ml 450 ml # Bowel Movements 1 Vital Signs Vital Signs Date Time Temp Pulse Resp B/P Pulse Ox O2 Delivery O2 Flow Rate FiO2 02/16/17 08:00 97.1 60 19 134/61 95 02/16/17 04:00 136/65 02/16/17 00:00 98.2 68 18 109/56 100 02/15/17 22:05 21 02/15/17 20:00 98.7 66 18 101/57 97 02/15/17 16:00 97.9 63 19 119/65 99 02/15/17 12:00 98.1 75 20 140/64 96 02/15/17 11:14 98 CBC/BMP: 02/16/17 0501 02/16/17 0501 Lab Results Laboratory Tests Test 02/16/17 05:01 White Blood Count 9.6 TH/MM3 Red Blood Count 3.07 MIL/MM3 Hemoglobin 8.4 GM/DL Hematocrit 25.2 % Mean Corpuscular Volume 82.1 FL Mean Corpuscular Hemoglobin 27.5 PG Mean Corpuscular Hemoglobin 33.5 % Concent Red Cell Distribution Width 14.6 % Platelet Count 243 TH/MM3 Mean Platelet Volume 10.0 FL Neutrophils (%) (Auto) 60.6 % Lymphocytes (%) (Auto) 26.6 % Monocytes (%) (Auto) 7.5 % Eosinophils (%) (Auto) 4.8 % Basophils (%) (Auto) 0.5 % Neutrophils # (Auto) 5.8 TH/MM3 Lymphocytes # (Auto) 2.6 TH/MM3 Monocytes # (Auto) 0.7 TH/MM3 Eosinophils # (Auto) 0.5 TH/MM3 Basophils # (Auto) 0.1 TH/MM3 CBC Comment DIFF FINAL Differential Comment Sodium Level 140 MEQ/L Potassium Level 3.5 MEQ/L Chloride Level 109 MEQ/L Carbon Dioxide Level 20.9 MEQ/L Anion Gap 10 MEQ/L Blood Urea Nitrogen 55 MG/DL Creatinine 4.17 MG/DL Estimat Glomerular Filtration 17 ML/MIN Rate Random Glucose 74 MG/DL Calcium Level 8.7 MG/DL Total Bilirubin 0.5 MG/DL Aspartate Amino Transf 8 U/L (AST/SGOT) Alanine Aminotransferase 6 U/L (ALT/SGPT) Alkaline Phosphatase 42 U/L Total Protein 8.0 GM/DL Albumin 2.9 GM/DL Microbiology Microbiology 02/15/17 Stool Occult Blood (ARUNA) - Final, Complete HEMOCCULT NEGATIVE Physical Exam General General Appearance: Well Developed, No Acute Distress, Comfortable Eyes Eye Exam: Sclera White, Extraocular Movement Intact Throat Throat Exam: Oral Mucosa [place] & Moist, Oral Pharynx Normal Neck Neck Exam: Neck Supple, Trachea Midline Pulmonary Resp Exam: Clear Bilaterally, Breath Sounds Equal, No Distress Cardiology CV Exam: Regular, Normal Sinus Rhythm Gastrointestinal/Abdomen GI Exam: Soft, Non-Tender, Bowel Sounds Present Musculoskeletal MS Exam: Joints Intact, Normal Tone, Good Strength Integumentary Skin Exam: Clear, Warm, Dry, Intact Extremeties Extremities Exam: No Edema, Pedal Pulses Palpable Neurologic Neuro Exam: Alert, Awake, Oriented, Speech Clear, Moving All Extremities, No Focal Deficits Psychiatric Psych Exam: Appropriate Responses VTE Prophylaxis VTE Prophylaxis Meds: Heparin PUD Prophylasis PUD Prophylaxis: Protonix Assessment/Plan Assessment/Plan ASSESSMENT AND PLAN This is a 71-year male who came to the ER diagnosed with: 1. Acute renal failure, etiology is unknown. Nephrology input noted.Per nephrology HAI from obstructive uropathy, renal US report reviewed, a Montoya was placed, developed hematuria likely due to bladder stretching, started Flomax 0.4 mg daily, follow urine output, avoid nephrotoxic medications serum electrophoresis has been ordered, also check serum phosphorus level, acidosis should improve as renal function recovers, elevated PSA, need urology evaluation consulted urology. Further recommendation per nephrology. 2. Anemia. The patient has iron deficiency. The patient started on an iron oral and IV and I also check fecal occult blood test to rule out GI bleed. on B12 and Folic acid replacement. 3. A history of arthritis. 4. DVT prophylaxis, heparin 5000 units subcutaneous twice a day. 5. GI prophylaxis Protonix 40 mg. 6. Hypertension. The patient started on Norvasc 10 mg p.o. daily and also clonidine 0.1 mg p.o. q. 6-hour if BP above 160/90. I am going to manage the patient on a daily basis and make Recommendations on a daily basis. Discussed Condition with: Patient Jamari Whitlock MD Feb 16, 2017 09:53
--- NOTE | 2017-02-16 10:01 | PD.CONS ---
[facility] Service Urology Consult Requested By Sam Whitlock and [facility] Primary Care Physician Erik Chisholm III, MD Diagnosis: History of Present Illness 71-year-old gentleman admitted for further workup and management of deteriorating renal function. Serum creatinine upon admission was greater than 5 and a renal ultrasound study was ordered. The study demonstrated bilateral hydronephrosis and thickening to the bladder wall without any discrete masses. An indwelling Montoya catheter was placed in the patient has been producing excellent urine output with improving serum creatinine levels. A urology consult was placed for further recommendations. At the time of consultation the patient advised me that he had been having problems with incomplete bladder emptying with frequent voids for quite some time. He denies dysuria or gross hematuria. He did have a serum PSA level checked back in 2016 according to the EMR with a reading of 8. Review of Systems Constitutional: DENIES: Fever, Night Sweats Gastrointestinal: DENIES: Abdominal pain Genitourinary: COMPLAINS OF: Urinary frequency, Urgency, DENIES: Hematuria Musculoskeletal: DENIES: Back pain Except as stated in HPI: all other systems reviewed are Neg Past Family Social History Past Medical History Arthritis Anemia Past Surgical History Denies major surgery Reported Medications Refer to EMR Allergies: Coded Allergies: No Known Allergies (Verified , 02/13/17) Active Ordered Medications Refer to EMR Family History Reviewed and noncontributory Social History Denies history tobacco or intravenous drug abuse Alcohol use in past but presently denies Physical Exam Vital Signs Date Time Temp Pulse Resp B/P Pulse Ox O2 Delivery O2 Flow Rate FiO2 02/16/17 08:00 97.1 60 19 134/61 95 02/16/17 04:00 136/65 02/16/17 00:00 98.2 68 18 109/56 100 02/15/17 22:05 21 02/15/17 20:00 98.7 66 18 101/57 97 02/15/17 16:00 97.9 63 19 119/65 99 02/15/17 12:00 98.1 75 20 140/64 96 02/15/17 11:14 98 Physical Exam GENERAL: This is a well-nourished, well-developed patient, in no apparent distress. SKIN: No rashes, ecchymoses or lesions. Cool and dry. HEAD: Atraumatic. Normocephalic. No temporal or scalp tenderness. EYES: Pupils equal round and reactive. Extraocular motions intact. No scleral icterus. No injection or drainage. ENT: Nose without bleeding, purulent drainage or septal hematoma. Throat without erythema, tonsillar hypertrophy or exudate. Uvula midline. Airway patent. NECK: Trachea midline. No JVD or lymphadenopathy. Supple, nontender, no meningeal signs.. GASTROINTESTINAL: Abdomen soft, non-tender, nondistended. No hepato-splenomegaly , or palpable masses. No guarding. GENITOURINARY: Montoya catheter in place draining clear yellow urine. Digital rectal exam revealed a prostate greater than 50 g, smooth without palpable nodules MUSCULOSKELETAL: Extremities without clubbing, cyanosis, or edema. No joint tenderness, effusion, or edema noted. No calf tenderness. Negative Homans sign bilaterally. NEUROLOGICAL: Awake and alert. Cranial nerves II through XII intact. Motor and sensory grossly within normal limits. Five out of 5 muscle strength in all muscle groups. Normal speech. Laboratory Tests Test 02/16/17 05:01 White Blood Count 9.6 Red Blood Count 3.07 Hemoglobin 8.4 Hematocrit 25.2 Mean Corpuscular Volume 82.1 Mean Corpuscular Hemoglobin 27.5 Mean Corpuscular Hemoglobin 33.5 Concent Red Cell Distribution Width 14.6 Platelet Count 243 Mean Platelet Volume 10.0 Neutrophils (%) (Auto) 60.6 Lymphocytes (%) (Auto) 26.6 Monocytes (%) (Auto) 7.5 Eosinophils (%) (Auto) 4.8 Basophils (%) (Auto) 0.5 Neutrophils # (Auto) 5.8 Lymphocytes # (Auto) 2.6 Monocytes # (Auto) 0.7 Eosinophils # (Auto) 0.5 Basophils # (Auto) 0.1 CBC Comment DIFF FINAL Differential Comment Sodium Level 140 Potassium Level 3.5 Chloride Level 109 Carbon Dioxide Level 20.9 Anion Gap 10 Blood Urea Nitrogen 55 Creatinine 4.17 Estimat Glomerular Filtration 17 Rate Random Glucose 74 Calcium Level 8.7 Total Bilirubin 0.5 Aspartate Amino Transf 8 (AST/SGOT) Alanine Aminotransferase 6 (ALT/SGPT) Alkaline Phosphatase 42 Total Protein 8.0 Albumin 2.9 Date/Time Procedure Status Source Growth 02/15/17 10:25 Stool Occult Blood (ARUNA) - Final Complete Stool Stool HEMOCCULT NEGATIVE Result Diagram: 02/16/17 0501 02/16/17 0501 Imaging Last Impressions Renal Ultrasound 02/14/17 0000 Signed Impressions: Service Date/Time: Tuesday, February 14, 2017 09:11 - CONCLUSION: 1. Moderate bilateral hydronephrosis. 2. Abnormal bladder with trabeculation and wall thickening without distinct mass. 3. Cystic structure along the right side of the bladder.of unclear significance. Freddy Livingston MD Chest X-Ray 02/13/172039 Signed Impressions: Service Date/Time: Monday, February 13, 2017 20:52 - CONCLUSION: No evidence of acute cardiopulmonary disease. Deo Mendenhall MD Assessment and Plan Assessment and Plan Urologic impression: #1 urinary retention of chronic nature most likely related to an obstructing prostate #2 bilateral hydronephrosis related to bladder outlet obstruction #3 improving renal indices improving with indwelling Montoya Recommendations: #1 we'll repeat a serum PSA #2 continue with Montoya catheter to gravity drainage #3 office follow up in approximately 2 weeks to allow continued improvement in renal function and to further workup the patient with cystoscopic evaluation Duane Yuen MD Feb 16, 2017 10:01
--- NOTE | 2017-02-16 11:51 | HHI.NPPN ---
Subjective General Problems: Anemia Renal Failure: Chronic, Acute, Stage IV Interval History He is comfortable today. Creatinine has improved. Adequate urine output. Urology has evaluated. (Kenyatta Gramajo) Review of Systems General Constitutional: Fatigue (Kenyatta Gramajo) Objective Data Data 02/15/17 02/16/17 19:00 07:00 Intake Total 1080 ml 360 ml Output Total 750 ml 1200 ml Balance 330 ml -840 ml Intake Oral 1080 ml 360 ml Output Urine Total 750 ml 1200 ml # Bowel Movements 1 Vital Signs Date Time Temp Pulse Resp B/P Pulse Ox O2 Delivery O2 Flow Rate FiO2 02/16/17 11:29 97 02/16/17 08:00 97.1 60 19 134/61 95 02/16/17 04:00 136/65 02/16/17 00:00 98.2 68 18 109/56 100 02/15/17 22:05 21 02/15/17 20:00 98.7 66 18 101/57 97 02/15/17 16:00 97.9 63 19 119/65 99 02/15/17 12:00 98.1 75 20 140/64 96 (Kenyatta Gramajo) -: 02/16/17 0501 02/16/17 0501 Imaging Last 72 hours Impressions Renal Ultrasound 02/14/17 0000 Signed Impressions: Service Date/Time: Tuesday, February 14, 2017 09:11 - CONCLUSION: 1. Moderate bilateral hydronephrosis. 2. Abnormal bladder with trabeculation and wall thickening without distinct mass. 3. Cystic structure along the right side of the bladder.of unclear significance. Freddy Livingston MD Chest X-Ray 02/13/172039 Signed Impressions: Service Date/Time: Monday, February 13, 2017 20:52 - CONCLUSION: No evidence of acute cardiopulmonary disease. Deo Mendenhall MD Tubes & Lines: Santamaria (Kenyatta Gramajo) Physical Exam General Appearance: Well Developed, Well Nourished, No Acute Distress, Comfortable ( Kenyatta Gramajo) Eyes Eye Exam: Sclera White, Extraocular Movement Intact (Kenyatta Gramajo) Throat Throat Exam: Oral Mucosa [place] & Moist, Oral Pharynx Normal (Kenyatta Gramajo) Neck Neck Exam: Neck Supple, Trachea Midline (Kenyatta Gramajo) Pulmonary Resp Exam: Clear Bilaterally, Breath Sounds Equal, No Distress (Kenyatta Gramajo) Cardiology CV Exam: Regular, Normal Sinus Rhythm (Kenyatta Gramajo) Gastrointestinal/Abdomen GI Exam: Soft, Non-Tender, Bowel Sounds Present (Kenyatta Gramajo) Genitourinary Remarks hematuria resolving (Kenyatta Gramajo) Musculoskeletal MS Exam: Joints Intact, Normal Tone, Good Strength (Kenyatta Gramajo) Integumentary Skin Exam: Clear, Warm, Dry, Intact (Kenyatta Gramajo) Extremeties Extremities Exam: No Edema, Pedal Pulses Palpable (Kenyatta Gramajo) Neurologic Neuro Exam: Alert, Awake, Oriented, Speech Clear, Moving All Extremities, No Focal Deficits (Kenyatta Gramajo) Psychiatric Psych Exam: Appropriate Responses (Kenyatta Gramajo) PUD Prophylasis PUD Prophylaxis: Protonix (Kenyatta Gramajo) Assessment/Plan Discussed Condition With: Patient Assessment Summary: HAI/Acute Renal Failure, Anemia of CKD, Hypertension, CKD Stage IV Problem List: (1) Acute kidney injury superimposed on CKD Plan: It appears he has underlying CKD 4, with no prior proteinuria suggesting underlying nephrosclerosis (serum electrophoresis is normal) Baseline creatinine 2.6 HAI from obstructive uropathy, s/p santamaria placement started on Flomax renal function improved urology has evaluated, will see in 2 weeks outpatient; to repeat PSA today; D/W nurse, she will do teaching with patient and regarding santamaria leg bag management, he will be discharged with catheter acidosis improving he does not require IVF repeat renal panel in AM, follow urine output avoid nephrotoxic medications (2) Anemia Plan: He has evidence of iron deficiency, on IV venofer and oral ferrous sulfate stool for occult bleeding negative Hb slightly improved, minimize labs draws if possible (3) Hypertension Plan: started on Norvasc and hydralazine avoid MARTINA currently Plan if discharged we will follow in CKD clinic ([facility]) Problem List: (1) Acute kidney injury superimposed on CKD Plan: It appears he has underlying CKD 4, with no prior proteinuria suggesting underlying nephrosclerosis (serum electrophoresis is normal) Baseline creatinine 2.6 HAI from obstructive uropathy, s/p santamaria placement started on Flomax renal function improved urology has evaluated, will see in 2 weeks outpatient; to repeat PSA today; D/W nurse, she will do teaching with patient and regarding santamaria leg bag management, he will be discharged with catheter acidosis improving he does not require IVF repeat renal panel in AM, follow urine output avoid nephrotoxic medications (2) Anemia Plan: He has evidence of iron deficiency, on IV venofer and oral ferrous sulfate stool for occult bleeding negative Hb slightly improved, minimize labs draws if possible (3) Hypertension Plan: started on Norvasc and hydralazine avoid MARTINA currently Plan patient was seen and examined. He will be discharged with a Santamaria catheter. Needs nephrology and urology followup. Renal function is slightly better. ( Brenden Lora MD) Kenyatta GramajoP Feb 16, 2017 11:51 Brenden Lora MD Feb 16, 2017 20:50
[2017-02-17] VITALS (7 sets, daily range): BP systolic 111–152; BP diastolic 63–74; PULSE 60–75; RESP 17–18; TEMP 97–98; O2SAT 96–99
[2017-02-17] MEDS: hydrALAZINE HCL 10 MG TAB PO SCH ×3 (05:50→20:06)
[2017-02-17 07:41] LABS: AUTOMATED NEUTROPHIL # 5.9 TH/MM3 (1.8-7.7); BASOPHIL # 0.1 TH/MM3 (0-0.2); BASOPHIL % 0.8 % (0.0-2.0); EOSINOPHIL # 0.6 TH/MM3 (0-0.4); EOSINOPHIL % 5.9 % (0.0-4.0); HEMATOCRIT 26.7 % (39.0-51.0); HEMO FLAGS DIFF FINAL; LYMPH % 27.1 % (9.0-44.0); LYMPHOCYTE # 2.7 TH/MM3 (1.0-4.8); MEAN CELL VOLUME 81.9 FL (80.0-100.0); MEAN CORPUSCULAR HEMOGLOBIN 27.4 PG (27.0-34.0); MEAN CORPUSCULAR HGB CONC 33.4 % (32.0-36.0); MONO % 6.8 % (0.0-8.0); NEUT % 59.4 % (16.0-70.0); PLATELET COUNT 268 TH/MM3 (150-450); RED BLOOD COUNT 3.26 MIL/MM3 (4.50-5.90); WHITE BLOOD COUNT 9.9 TH/MM3 (4.0-11.0)
[2017-02-17 08:01] LABS: ALT (GPT) LESS THAN 6 U/L (12-78); ANION GAP 10 MEQ/L (5-15); AST (GOT) 7 U/L (15-37); BICARBONATE 20.6 MEQ/L (21.0-32.0); BLOOD UREA NITROGEN 53 MG/DL (7-18); CHLORIDE 110 MEQ/L (98-107); GLOMERULAR FILTRATION RATE 19 ML/MIN (>89); POTASSIUM 3.5 MEQ/L (3.5-5.1); SODIUM (NA) 141 MEQ/L (136-145)
[2017-02-17 08:02] LABS: ALKALINE PHOSPHATASE 42 U/L (45-117); TOTAL BILIRUBIN ADULT 0.5 MG/DL (0.2-1.0)
[2017-02-17] MEDS: HEPARIN SODIUM - SQ 10,000 UNITS/ML VIAL SQ SCH ×2 (09:30→20:06)
[2017-02-17] MEDS: FERROUS SULFATE 325 MG (65 MG ELEMENTAL IRON) TAB PO SCH ×2 (09:30→20:06)
[2017-02-17] MEDS: FOLIC ACID 1 MG TAB PO SCH (09:30)
[2017-02-17] MEDS: CYANOCOBALAMIN 1,000 MCG TAB PO SCH (09:30)
[2017-02-17] MEDS: PANTOPRAZOLE SOD 40 MG DELAYED RELEASE TAB PO SCH (09:39)
--- NOTE | 2017-02-17 10:07 | HHI.PR ---
Subjective History of Present Illness Patient feel better nephrology input noted renal function recovers, elevated PSA, urology input noted. He is comfortable today. Creatinine has improved. Adequate urine output. Review of Systems Constitutional Constitutional: Fatigue, Weakness Vitals/Results Intake & Output 02/16/17 02/16/17 02/17/17 15:00 23:00 07:00 Intake Total 970 ml 240 ml 120 ml Output Total 750 ml 1450 ml 0 ml Balance 220 ml -1210 ml 120 ml Intake Oral 970 ml 240 ml 120 ml Output Urine Total 750 ml 1450 ml 0 ml # Bowel Movements 1 1 0 Vital Signs Vital Signs Date Time Temp Pulse Resp B/P Pulse Ox O2 Delivery O2 Flow Rate FiO2 02/17/17 08:00 97.1 64 17 133/64 96 02/17/17 05:49 60 130/69 02/17/17 00:00 97.3 66 18 111/64 98 02/16/17 20:00 97.4 64 18 124/69 99 02/16/17 16:00 97.6 63 20 119/65 96 02/16/17 12:00 98.4 65 20 116/57 100 02/16/17 11:29 97 CBC/BMP: 02/17/17 0649 02/17/17 0649 Lab Results Laboratory Tests Test 02/16/17 02/17/17 18:59 06:49 Prostate Specific Antigen 9.41 NG/ML White Blood Count 9.9 TH/MM3 Red Blood Count 3.26 MIL/MM3 Hemoglobin 8.9 GM/DL Hematocrit 26.7 % Mean Corpuscular Volume 81.9 FL Mean Corpuscular Hemoglobin 27.4 PG Mean Corpuscular Hemoglobin 33.4 % Concent Red Cell Distribution Width 15.0 % Platelet Count 268 TH/MM3 Mean Platelet Volume 9.8 FL Neutrophils (%) (Auto) 59.4 % Lymphocytes (%) (Auto) 27.1 % Monocytes (%) (Auto) 6.8 % Eosinophils (%) (Auto) 5.9 % Basophils (%) (Auto) 0.8 % Neutrophils # (Auto) 5.9 TH/MM3 Lymphocytes # (Auto) 2.7 TH/MM3 Monocytes # (Auto) 0.7 TH/MM3 Eosinophils # (Auto) 0.6 TH/MM3 Basophils # (Auto) 0.1 TH/MM3 CBC Comment DIFF FINAL Differential Comment Sodium Level 141 MEQ/L Potassium Level 3.5 MEQ/L Chloride Level 110 MEQ/L Carbon Dioxide Level 20.6 MEQ/L Anion Gap 10 MEQ/L Blood Urea Nitrogen 53 MG/DL Creatinine 3.80 MG/DL Estimat Glomerular Filtration 19 ML/MIN Rate Random Glucose 81 MG/DL Calcium Level 8.9 MG/DL Total Bilirubin 0.5 MG/DL Aspartate Amino Transf 7 U/L (AST/SGOT) Alanine Aminotransferase LESS THAN 6 U/L (ALT/SGPT) Alkaline Phosphatase 42 U/L Total Protein 8.1 GM/DL Albumin 3.0 GM/DL Physical Exam General General Appearance: Well Developed, Well Nourished, No Acute Distress, Comfortable Eyes Eye Exam: Sclera White, Extraocular Movement Intact Throat Throat Exam: Oral Mucosa [place] & Moist, Oral Pharynx Normal Neck Neck Exam: Neck Supple, Trachea Midline Pulmonary Resp Exam: Clear Bilaterally, Breath Sounds Equal, No Distress Cardiology CV Exam: Regular, Normal Sinus Rhythm Gastrointestinal/Abdomen GI Exam: Soft, Non-Tender, Bowel Sounds Present Musculoskeletal MS Exam: Joints Intact, Normal Tone, Good Strength Integumentary Skin Exam: Clear, Warm, Dry, Intact Extremeties Extremities Exam: No Edema, Pedal Pulses Palpable Neurologic Neuro Exam: Alert, Awake, Oriented, Speech Clear, Moving All Extremities, No Focal Deficits Psychiatric Psych Exam: Appropriate Responses VTE Prophylaxis VTE Prophylaxis Meds: Heparin PUD Prophylasis PUD Prophylaxis: Protonix Assessment/Plan Assessment/Plan ASSESSMENT AND PLAN This is a 71-year male who came to the ER diagnosed with: 1. Acute renal failure, etiology is unknown. Nephrology input noted.Per nephrology HAI from obstructive uropathy, renal US report reviewed, a Montoya was placed, developed hematuria likely due to bladder stretching, started Flomax 0.4 mg daily, follow urine output, avoid nephrotoxic medications serum electrophoresis has been ordered, also check serum phosphorus level, acidosis should improve as renal function recovers, elevated PSA, urology input noted. Further recommendation per nephrology. 2. Anemia. The patient has iron deficiency. The patient on an iron oral and IV and I also check fecal occult blood test to rule out GI bleed. on B12 and Folic acid replacement. 3. A history of arthritis. 4. DVT prophylaxis, heparin 5000 units subcutaneous twice a day. 5. GI prophylaxis Protonix 40 mg. 6. Hypertension. The patient on Norvasc 10 mg p.o. daily and also clonidine 0.1 mg p.o. q. 6-hour if BP above 160/90. I am going to manage the patient on a daily basis and make Recommendations on a daily basis. Check CBC with diff CMP in AM. Discussed Condition with: Patient Jamari Whitlock MD Feb 17, 2017 10:07 Jamari Whitlock MD Feb 17, 2017 10:07
[2017-02-17] MEDS: SODIUM CHLORIDE 0.9% FLUSH 10 ML FLUSH IV FLUSH SCH ×2 (14:46→20:06)
[2017-02-17] MEDS: MAGNESIUM HYDROXIDE SUSP 30 ML CUP PO PRN (16:51)
--- NOTE | 2017-02-17 17:13 | HHI.NPPN ---
Subjective General Problems: Anemia Renal Failure: Chronic, Acute, Stage IV Additional Remarks No acute complaints Review of Systems General Constitutional: Fatigue Objective Data Data 02/16/17 02/17/17 18:59 06:59 Intake Total 970 ml 360 ml Output Total 750 ml 1450 ml Balance 220 ml -1090 ml Intake Oral 970 ml 360 ml Output Urine Total 750 ml 1450 ml # Bowel Movements 1 1 Vital Signs Date Time Temp Pulse Resp B/P Pulse Ox O2 Delivery O2 Flow Rate FiO2 02/17/17 16:00 97.0 70 17 116/63 99 02/17/17 12:00 97.5 67 18 152/74 98 02/17/17 08:00 97.1 64 17 133/64 96 02/17/17 05:49 60 130/69 02/17/17 00:00 97.3 66 18 111/64 98 02/16/17 20:00 97.4 64 18 124/69 99 -: 02/17/17 0649 02/17/17 0649 Tubes & Lines: Santamaria Physical Exam General Appearance: Well Developed, Well Nourished, No Acute Distress, Comfortable Eyes Eye Exam: Sclera White, Extraocular Movement Intact Throat Throat Exam: Oral Mucosa [place] & Moist, Oral Pharynx Normal Neck Neck Exam: Neck Supple, Trachea Midline Pulmonary Resp Exam: Clear Bilaterally, Breath Sounds Equal, No Distress Cardiology CV Exam: Regular, Normal Sinus Rhythm Gastrointestinal/Abdomen GI Exam: Soft, Non-Tender, Bowel Sounds Present Musculoskeletal MS Exam: Joints Intact, Normal Tone, Good Strength Integumentary Skin Exam: Clear, Warm, Dry, Intact Extremeties Extremities Exam: No Edema, Pedal Pulses Palpable Neurologic Neuro Exam: Alert, Awake, Oriented, Speech Clear, Moving All Extremities, No Focal Deficits Psychiatric Psych Exam: Appropriate Responses PUD Prophylasis PUD Prophylaxis: Protonix Assessment/Plan Discussed Condition With: Patient Assessment Summary: HAI/Acute Renal Failure, Anemia of CKD, Hypertension, CKD Stage IV Problem List: (1) Acute kidney injury superimposed on CKD Plan: It appears he has underlying CKD 4, with no prior proteinuria suggesting underlying nephrosclerosis (serum electrophoresis is normal) Baseline creatinine 2.6 HAI from obstructive uropathy, s/p santamaria placement started on Flomax Good UOP, renal function improving. urology has evaluated, will see in 2 weeks outpatient; He will be discharged with catheter Stable for d/c from renal standpoint with outpatient and renal follow-up (2) Anemia Plan: He has evidence of iron deficiency, on IV venofer and oral ferrous sulfate stool for occult bleeding negative Hb slightly improved, minimize labs draws if possible (3) Hypertension Plan: started on Norvasc and hydralazine avoid MARTINA currently Galileo Fuentes MD Feb 17, 2017 17:13
[2017-02-18 04:25] LABS: AUTOMATED NEUTROPHIL # 6.1 TH/MM3 (1.8-7.7); BASOPHIL # 0.1 TH/MM3 (0-0.2); BASOPHIL % 0.7 % (0.0-2.0); EOSINOPHIL # 0.6 TH/MM3 (0-0.4); EOSINOPHIL % 6.3 % (0.0-4.0); HEMATOCRIT 25.4 % (39.0-51.0); HEMO FLAGS DIFF FINAL; LYMPH % 22.6 % (9.0-44.0); LYMPHOCYTE # 2.3 TH/MM3 (1.0-4.8); MEAN CELL VOLUME 81.6 FL (80.0-100.0); MEAN CORPUSCULAR HEMOGLOBIN 27.6 PG (27.0-34.0); MEAN CORPUSCULAR HGB CONC 33.8 % (32.0-36.0); MONO % 9.4 % (0.0-8.0); PLATELET COUNT 275 TH/MM3 (150-450); RED BLOOD COUNT 3.11 MIL/MM3 (4.50-5.90); RED CELL DISTRIBUTION WIDTH 14.7 % (11.6-17.2); WHITE BLOOD COUNT 10.1 TH/MM3 (4.0-11.0)
[2017-02-18 04:49] LABS: ANION GAP 10 MEQ/L (5-15); AST (GOT) 8 U/L (15-37); BICARBONATE 20.6 MEQ/L (21.0-32.0); BLOOD UREA NITROGEN 62 MG/DL (7-18); CHLORIDE 106 MEQ/L (98-107); GLOMERULAR FILTRATION RATE 20 ML/MIN (>89); POTASSIUM 4.3 MEQ/L (3.5-5.1); SODIUM (NA) 137 MEQ/L (136-145)
[2017-02-18 04:51] LABS: ALT (GPT) 7 U/L (12-78)
[2017-02-18 04:53] LABS: ALKALINE PHOSPHATASE 42 U/L (45-117); TOTAL BILIRUBIN ADULT 0.4 MG/DL (0.2-1.0)
[2017-02-18] MEDS: hydrALAZINE HCL 10 MG TAB PO SCH ×3 (05:17→21:20)
[2017-02-18 05:18] VITALS: BP 133/65; PULSE 75
[2017-02-18 08:00] VITALS: BP 134/77; PULSE 85; RESP 16; TEMP 98.1; O2SAT 100
[2017-02-18] MEDS: PANTOPRAZOLE SOD 40 MG DELAYED RELEASE TAB PO SCH (09:00)
[2017-02-18] MEDS: HEPARIN SODIUM - SQ 10,000 UNITS/ML VIAL SQ SCH ×2 (09:00→21:19)
[2017-02-18] MEDS: SODIUM CHLORIDE 0.9% FLUSH 10 ML FLUSH IV FLUSH SCH ×2 (09:00→21:20)
[2017-02-18] MEDS: CYANOCOBALAMIN 1,000 MCG TAB PO SCH (09:00)
[2017-02-18] MEDS: FERROUS SULFATE 325 MG (65 MG ELEMENTAL IRON) TAB PO SCH ×2 (09:00→21:20)
[2017-02-18] MEDS: FOLIC ACID 1 MG TAB PO SCH (09:00)
[2017-02-18 11:50] VITALS: O2SAT 98
[2017-02-18 12:00] VITALS: BP 124/67; PULSE 71; RESP 16; TEMP 98.5; O2SAT 100
[2017-02-18 16:00] VITALS: BP 114/63; PULSE 70; RESP 16; TEMP 98.2; O2SAT 100
--- NOTE | 2017-02-18 18:57 | HHI.NPPN ---
Subjective General Problems: Anemia Renal Failure: Chronic, Acute, Stage IV Additional Remarks No acute complaints Review of Systems General Constitutional: Fatigue Objective Data Data 02/18/17 02/19/17 18:59 06:59 Intake Total 400 ml Output Total 950 ml Balance -550 ml Intake Oral 400 ml Output Urine Total 950 ml # Bowel Movements 0 Vital Signs Date Time Temp Pulse Resp B/P (MAP) Pulse Ox O2 Delivery O2 Flow Rate FiO2 02/18/17 16:00 98.2 70 16 114/63 (80) 100 02/18/17 12:00 98.5 71 16 124/67 (86) 100 02/18/17 11:50 98 21 02/18/17 08:00 98.1 85 16 134/77 (96) 100 02/18/17 05:18 75 133/65 (87) 02/17/17 23:40 98.0 75 18 114/68 (83) 98 02/17/17 20:00 97.7 69 18 118/68 (85) 98 -: 02/18/17 0309 02/18/17 0309 Tubes & Lines: Santamaria Physical Exam General Appearance: Well Developed, Well Nourished, No Acute Distress, Comfortable Eyes Eye Exam: Sclera White, Extraocular Movement Intact Throat Throat Exam: Oral Mucosa [place] & Moist, Oral Pharynx Normal Neck Neck Exam: Neck Supple, Trachea Midline Pulmonary Resp Exam: Clear Bilaterally, Breath Sounds Equal, No Distress Cardiology CV Exam: Regular, Normal Sinus Rhythm Gastrointestinal/Abdomen GI Exam: Soft, Non-Tender, Bowel Sounds Present Musculoskeletal MS Exam: Joints Intact, Normal Tone, Good Strength Integumentary Skin Exam: Clear, Warm, Dry, Intact Extremeties Extremities Exam: No Edema, Pedal Pulses Palpable Neurologic Neuro Exam: Alert, Awake, Oriented, Speech Clear, Moving All Extremities, No Focal Deficits Psychiatric Psych Exam: Appropriate Responses PUD Prophylasis PUD Prophylaxis: Protonix Assessment/Plan Discussed Condition With: Patient Assessment Summary: HAI/Acute Renal Failure, Anemia of CKD, Hypertension, CKD Stage IV Problem List: (1) Acute kidney injury superimposed on CKD ICD Codes: N17.9 - Acute kidney failure, unspecified; N18.9 - Chronic kidney disease, unspecified Status: Acute Plan: It appears he has underlying CKD 4, with no prior proteinuria suggesting underlying nephrosclerosis (serum electrophoresis is normal) Baseline creatinine 2.6 HAI from obstructive uropathy, s/p santamaria placement started on Flomax Good UOP, renal function improving. Creatine 3.8 -> 3.6, near baseline. urology has evaluated, will see in 2 weeks outpatient; He will be discharged with catheter Stable for d/c from renal standpoint with outpatient and renal follow-up (2) Anemia ICD Codes: D64.9 - Anemia, unspecified Status: Acute Plan: He has evidence of iron deficiency, on IV venofer and oral ferrous sulfate stool for occult bleeding negative Hb slightly improved, minimize labs draws if possible (3) Hypertension ICD Codes: I10 - Essential (primary) hypertension Status: Acute Plan: started on Norvasc and hydralazine avoid MARTINA currently BP stable Galileo Fuentes MD Feb 18, 2017 18:57
[2017-02-18 20:00] VITALS: BP 122/69; PULSE 79; RESP 18; TEMP 97.9; O2SAT 96
[2017-02-18] MEDS: SENNOSIDES 8.6 MG TAB PO PRN (21:22)
[2017-02-19] VITALS (7 sets, daily range): BP systolic 111–135; BP diastolic 63–76; PULSE 67–92; RESP 17–18; TEMP 97.3–98.4; O2SAT 96–100
[2017-02-19] MEDS: hydrALAZINE HCL 10 MG TAB PO SCH ×3 (05:41→20:16)
[2017-02-19] MEDS: SODIUM CHLORIDE 0.9% FLUSH 10 ML FLUSH IV FLUSH SCH ×2 (08:17→20:16)
[2017-02-19] MEDS: FOLIC ACID 1 MG TAB PO SCH (08:17)
[2017-02-19] MEDS: FERROUS SULFATE 325 MG (65 MG ELEMENTAL IRON) TAB PO SCH ×2 (08:17→20:16)
[2017-02-19] MEDS: HEPARIN SODIUM - SQ 10,000 UNITS/ML VIAL SQ SCH ×2 (08:17→20:16)
[2017-02-19] MEDS: CYANOCOBALAMIN 1,000 MCG TAB PO SCH (08:17)
[2017-02-19] MEDS: PANTOPRAZOLE SOD 40 MG DELAYED RELEASE TAB PO SCH (08:17)
[2017-02-19] MEDS: MAGNESIUM HYDROXIDE SUSP 30 ML CUP PO PRN (08:22)
--- NOTE | 2017-02-19 12:48 | HHI.NPPN ---
Subjective General Problems: Anemia Renal Failure: Chronic, Acute, Stage IV Interval History Doing well. No new concerns. Urine output is adequate, santamaria remains in place. (Kenyatta Gramajo) Review of Systems General Constitutional: Fatigue (Kenyatta Gramajo) Objective Data Data Vital Signs Date Time Temp Pulse Resp B/P (MAP) Pulse Ox O2 Delivery O2 Flow Rate FiO2 02/19/17 08:00 98.3 73 18 135/71 (92) 100 02/19/17 04:32 97.6 67 18 125/71 (89) 96 02/19/17 00:00 97.8 92 18 122/67 (85) 96 02/18/17 20:00 97.9 79 18 122/69 (86) 96 02/18/17 16:00 98.2 70 16 114/63 (80) 100 (Kenyatta Gramajo) -: 02/18/17 0309 02/18/17 0309 Imaging Last Impressions Renal Ultrasound 02/14/17 0000 Signed Impressions: Service Date/Time: Tuesday, February 14, 2017 09:11 - CONCLUSION: 1. Moderate bilateral hydronephrosis. 2. Abnormal bladder with trabeculation and wall thickening without distinct mass. 3. Cystic structure along the right side of the bladder.of unclear significance. Freddy Livingston MD Chest X-Ray 02/13/[id number] Signed Impressions: Service Date/Time: Monday, February 13, 2017 20:52 - CONCLUSION: No evidence of acute cardiopulmonary disease. Deo Mendenhall MD Tubes & Lines: Santamaria (Kenyatta Gramajo) Physical Exam General Appearance: Well Developed, Well Nourished, No Acute Distress, Comfortable (Kenyatta Gramajo) Eyes Eye Exam: Sclera White, Extraocular Movement Intact (Kenyatta Gramajo) Throat Throat Exam: Oral Mucosa [place] & Moist, Oral Pharynx Normal (Kenyatta Gramajo) Neck Neck Exam: Neck Supple, Trachea Midline (Kenyatta Gramajo) Pulmonary Resp Exam: Clear Bilaterally, Breath Sounds Equal, No Distress (Kenyatta Gramajo) Cardiology CV Exam: Regular, Normal Sinus Rhythm (Kenyatta Gramajo) Gastrointestinal/Abdomen GI Exam: Soft, Non-Tender, Bowel Sounds Present (Kenyatta Gramajo) Genitourinary Remarks hematuria resolving (Kenyatta Gramajo) Musculoskeletal MS Exam: Joints Intact, Normal Tone, Good Strength (Kenyatta Gramajo) Integumentary Skin Exam: Clear, Warm, Dry, Intact (Kenyatta Gramajo) Extremeties Extremities Exam: No Edema, Pedal Pulses Palpable (Kenyatta Gramajo) Neurologic Neuro Exam: Alert, Awake, Oriented, Speech Clear, Moving All Extremities, No Focal Deficits (Kenyatta Gramajo) Psychiatric Psych Exam: Appropriate Responses (Kenyatta Gramajo) PUD Prophylasis PUD Prophylaxis: Protonix (Kenyatta Gramajo) Assessment/Plan Discussed Condition With: Patient Assessment Summary: HAI/Acute Renal Failure, Anemia of CKD, Hypertension, CKD Stage IV Problem List: (1) Acute kidney injury superimposed on CKD ICD Codes: N17.9 - Acute kidney failure, unspecified; N18.9 - Chronic kidney disease, unspecified Status: Acute Plan: It appears he has underlying CKD 4, with no prior proteinuria suggesting underlying nephrosclerosis (serum electrophoresis is normal) Baseline creatinine 2.6 HAI from obstructive uropathy, s/p santamaria placement started on Flomax renal function is stable urology has evaluated, will see in 2 weeks outpatient; He will be discharged with catheter cleared for discharge, we will follow in 4 weeks in CKD clinic. (2) Anemia ICD Codes: D64.9 - Anemia, unspecified Status: Acute Plan: ordered IV and PO iron (3) Hypertension ICD Codes: I10 - Essential (primary) hypertension Status: Acute Plan: started on Norvasc and hydralazine likely will give MARTINA outpatient BP stable (Kenyatta Gramajo) Plan patient was seen and examined. Agree with above assessment and plan. He can be discharged from renal standpoint. (Brenden Lora MD) Kenyatta Gramajo Feb 19, 2017 12:48 Brenden Lora MD Feb 20, 2017 11:20
[2017-02-20] VITALS: BP 129/72; PULSE 73; RESP 17; TEMP 97.1; O2SAT 100
[2017-02-20 04:00] VITALS: BP 112/70; PULSE 74; RESP 17; TEMP 96.7; O2SAT 100
[2017-02-20] MEDS: hydrALAZINE HCL 10 MG TAB PO SCH ×2 (05:06→13:17)
[2017-02-20] MEDS: SENNOSIDES 8.6 MG TAB PO PRN (05:09)
[2017-02-20 08:00] VITALS: BP 124/72; PULSE 76; RESP 16; TEMP 97.4; O2SAT 100
[2017-02-20] MEDS: CYANOCOBALAMIN 1,000 MCG TAB PO SCH (08:18)
[2017-02-20] MEDS: FOLIC ACID 1 MG TAB PO SCH (08:18)
[2017-02-20] MEDS: PANTOPRAZOLE SOD 40 MG DELAYED RELEASE TAB PO SCH (08:18)
[2017-02-20] MEDS: FERROUS SULFATE 325 MG (65 MG ELEMENTAL IRON) TAB PO SCH (08:18)
[2017-02-20] MEDS: SODIUM CHLORIDE 0.9% FLUSH 10 ML FLUSH IV FLUSH SCH (08:19)
[2017-02-20] MEDS: HEPARIN SODIUM - SQ 10,000 UNITS/ML VIAL SQ SCH (08:19)
--- NOTE | 2017-02-20 10:04 | HHI.PR ---
Subjective History of Present Illness Patient seen on 02/18/17 feel better nephrology input noted renal function recovers, elevated PSA, urology input noted. He is comfortable today. Creatinine has improved. Adequate urine output. Review of Systems Constitutional Constitutional: Fatigue, Weakness Vitals/Results Vital Signs Vital Signs Date Time Temp Pulse Resp B/P (MAP) Pulse Ox O2 Delivery O2 Flow Rate FiO2 02/20/17 08:00 97.4 76 16 124/72 (89) 100 02/20/17 04:00 96.7 74 17 112/70 (84) 100 02/20/17 00:00 97.1 73 17 129/72 (91) 100 02/19/17 20:00 97.3 73 17 126/69 (88) 100 02/19/17 16:00 97.9 75 18 111/63 (79) 99 02/19/17 12:00 98.4 75 18 132/76 (94) 100 CBC/BMP: 02/18/17 0309 02/18/17 0309 Physical Exam General General Appearance: Well Developed, Well Nourished, No Acute Distress, Comfortable Eyes Eye Exam: Sclera White, Extraocular Movement Intact Throat Throat Exam: Oral Mucosa [place] & Moist, Oral Pharynx Normal Neck Neck Exam: Neck Supple, Trachea Midline Pulmonary Resp Exam: Clear Bilaterally, Breath Sounds Equal, No Distress Cardiology CV Exam: Regular, Normal Sinus Rhythm Gastrointestinal/Abdomen GI Exam: Soft, Non-Tender, Bowel Sounds Present Musculoskeletal MS Exam: Joints Intact, Normal Tone, Good Strength Integumentary Skin Exam: Clear, Warm, Dry, Intact Extremeties Extremities Exam: No Edema, Pedal Pulses Palpable Neurologic Neuro Exam: Alert, Awake, Oriented, Speech Clear, Moving All Extremities, No Focal Deficits Psychiatric Psych Exam: Appropriate Responses VTE Prophylaxis VTE Prophylaxis Meds: Heparin PUD Prophylasis PUD Prophylaxis: Protonix Assessment/Plan Assessment/Plan ASSESSMENT AND PLAN This is a 71-year male who came to the ER diagnosed with: 1. Acute renal failure, etiology is unknown. Nephrology input noted.Per nephrology HAI from obstructive uropathy, renal US report reviewed, a Montoya was placed, developed hematuria likely due to bladder stretching, started Flomax 0.4 mg daily, follow urine output, avoid nephrotoxic medications serum electrophoresis has been ordered, also check serum phosphorus level, acidosis should improve as renal function recovers, elevated PSA, urology input noted. Further recommendation per nephrology. 2. Anemia. The patient has iron deficiency. The patient on an iron oral and IV and I also check fecal occult blood test to rule out GI bleed. on B12 and Folic acid replacement. 3. A history of arthritis. 4. DVT prophylaxis, heparin 5000 units subcutaneous twice a day. 5. GI prophylaxis Protonix 40 mg. 6. Hypertension. The patient on Norvasc 10 mg p.o. daily and also clonidine 0.1 mg p.o. q. 6-hour if BP above 160/90. I am going to manage the patient on a daily basis and make Recommendations on a daily basis. Check CBC with diff CMP in AM. Discussed Condition with: Patient Jamari Whitlock MD Feb 20, 2017 10:04
--- NOTE | 2017-02-20 10:17 | HHI.PR ---
Subjective History of Present Illness Patient seen on 02/19/17 feel better nephrology input noted renal function recovers, He is comfortable today. Creatinine has improved. Adequate urine output. discharge plan soon. Review of Systems Constitutional Constitutional: Fatigue, Weakness Vitals/Results Vital Signs Vital Signs Date Time Temp Pulse Resp B/P (MAP) Pulse Ox O2 Delivery O2 Flow Rate FiO2 02/20/17 08:00 97.4 76 16 124/72 (89) 100 02/20/17 04:00 96.7 74 17 112/70 (84) 100 02/20/17 00:00 97.1 73 17 129/72 (91) 100 02/19/17 20:00 97.3 73 17 126/69 (88) 100 02/19/17 16:00 97.9 75 18 111/63 (79) 99 02/19/17 12:00 98.4 75 18 132/76 (94) 100 CBC/BMP: 02/18/17 0309 02/18/17 0309 Physical Exam General General Appearance: Well Developed, Well Nourished, No Acute Distress, Comfortable Eyes Eye Exam: Sclera White, Extraocular Movement Intact Throat Throat Exam: Oral Mucosa [place] & Moist, Oral Pharynx Normal Neck Neck Exam: Neck Supple, Trachea Midline Pulmonary Resp Exam: Clear Bilaterally, Breath Sounds Equal, No Distress Cardiology CV Exam: Regular, Normal Sinus Rhythm Gastrointestinal/Abdomen GI Exam: Soft, Non-Tender, Bowel Sounds Present Musculoskeletal MS Exam: Joints Intact, Normal Tone, Good Strength Integumentary Skin Exam: Clear, Warm, Dry, Intact Extremeties Extremities Exam: No Edema, Pedal Pulses Palpable Neurologic Neuro Exam: Alert, Awake, Oriented, Speech Clear, Moving All Extremities, No Focal Deficits Psychiatric Psych Exam: Appropriate Responses VTE Prophylaxis VTE Prophylaxis Meds: Heparin PUD Prophylasis PUD Prophylaxis: Protonix Assessment/Plan Assessment/Plan ASSESSMENT AND PLAN This is a 71-year male who came to the ER diagnosed with: 1. Acute renal failure, etiology is unknown. Nephrology input noted.Per nephrology HAI from obstructive uropathy, renal US report reviewed, a Montoya was placed, developed hematuria likely due to bladder stretching, on Flomax 0.4 mg daily , follow urine output, avoid nephrotoxic medications serum electrophoresis has been ordered, also checked serum phosphorus level, acidosis improved as renal function recovers, elevated PSA, urology input noted. Further recommendation per nephrology. 2. Anemia. The patient has iron deficiency. The patient on an iron oral and IV and I also check fecal occult blood test to rule out GI bleed. on B12 and Folic acid replacement. 3. A history of arthritis. 4. DVT prophylaxis, heparin 5000 units subcutaneous twice a day. 5. GI prophylaxis Protonix 40 mg. 6. Hypertension. The patient on Norvasc 10 mg p.o. daily and also clonidine 0.1 mg p.o. q. 6-hour if BP above 160/90. I am going to manage the patient on a daily basis and make Recommendations on a daily basis. Check CBC with diff CMP in AM. Discussed Condition with: Patient Jamari Whitlock MD Feb 20, 2017 10:17
--- NOTE | 2017-02-20 10:19 | HHI.PR ---
Subjective History of Present Illness Patient seen on 02/20/17 feel better nephrology input noted renal function recovers, He is comfortable today. Creatinine has improved. Adequate urine output. ok to discharge home today. Review of Systems Constitutional Constitutional: Fatigue, Weakness Vitals/Results Vital Signs Vital Signs Date Time Temp Pulse Resp B/P (MAP) Pulse Ox O2 Delivery O2 Flow Rate FiO2 02/20/17 08:00 97.4 76 16 124/72 (89) 100 02/20/17 04:00 96.7 74 17 112/70 (84) 100 02/20/17 00:00 97.1 73 17 129/72 (91) 100 02/19/17 20:00 97.3 73 17 126/69 (88) 100 02/19/17 16:00 97.9 75 18 111/63 (79) 99 02/19/17 12:00 98.4 75 18 132/76 (94) 100 CBC/BMP: 02/18/17 0309 02/18/17 0309 Physical Exam General General Appearance: Well Developed, Well Nourished, No Acute Distress, Comfortable Eyes Eye Exam: Sclera White, Extraocular Movement Intact Throat Throat Exam: Oral Mucosa [place] & Moist, Oral Pharynx Normal Neck Neck Exam: Neck Supple, Trachea Midline Pulmonary Resp Exam: Clear Bilaterally, Breath Sounds Equal, No Distress Cardiology CV Exam: Regular, Normal Sinus Rhythm Gastrointestinal/Abdomen GI Exam: Soft, Non-Tender, Bowel Sounds Present Musculoskeletal MS Exam: Joints Intact, Normal Tone, Good Strength Integumentary Skin Exam: Clear, Warm, Dry, Intact Extremeties Extremities Exam: No Edema, Pedal Pulses Palpable Neurologic Neuro Exam: Alert, Awake, Oriented, Speech Clear, Moving All Extremities, No Focal Deficits Psychiatric Psych Exam: Appropriate Responses VTE Prophylaxis VTE Prophylaxis Meds: Heparin PUD Prophylasis PUD Prophylaxis: Protonix Assessment/Plan Assessment/Plan ASSESSMENT AND PLAN This is a 71-year male who came to the ER diagnosed with: 1. Acute renal failure, etiology is unknown. Nephrology input noted.Per nephrology HAI from obstructive uropathy, renal US report reviewed, a Montoya was placed, developed hematuria likely due to bladder stretching, on Flomax 0.4 mg daily , follow urine output, avoid nephrotoxic medications serum electrophoresis has been ordered, also checked serum phosphorus level, acidosis improved as renal function recovers, elevated PSA, urology input noted. Further recommendation per nephrology. 2. Anemia. The patient has iron deficiency. The patient on an iron oral and IV and I also check fecal occult blood test to rule out GI bleed. on B12 and Folic acid replacement. 3. A history of arthritis. 4. DVT prophylaxis, heparin 5000 units subcutaneous twice a day. 5. GI prophylaxis Protonix 40 mg. 6. Hypertension. The patient on Norvasc 10 mg p.o. daily and also clonidine 0.1 mg p.o. q. 6-hour if BP above 160/90. ok to discharge home today. f/u with PCP/ nephrology 1 WEEK. Discussed Condition with: Patient Jamari Whitlock MD Feb 20, 2017 10:19
--- NOTE | 2017-02-20 10:21 | HHI.FF ---
Face to Face Verification Diagnosis: (1) Hypertension (2) Acute kidney injury superimposed on CKD Physical Therapy Order: Evaluate and Treat, Improve ambulation Occupational Therapy Order: Evaluate and Treat, Gross motor coordination Home Health Nursing Order: Medical education Medication education-adverse effect I have seen patient Domingo Frias on 02/20/17. My clinical findings support the need for the requested home health care services because: Ltd mobility - disease progression High risk of falls I certify that my clinical findings support that this patient is homebound because: Unsteady gait/balance Jamari Whitlock MD Feb 20, 2017 10:21
[2017-02-20] MEDS ORDERED: VITA10002 PO (10:24)
[2017-02-20] MEDS ORDERED: FERR325T20 PO (10:24)
[2017-02-20] MEDS ORDERED: HYDR-3798 PO (10:24)
[2017-02-20] MEDS ORDERED: AMLO10 PO (10:24)
[2017-02-20] MEDS ORDERED: AMLO10TA2 PO (11:35)
[2017-02-20] MEDS ORDERED: VITA500T4 PO (11:36)
[2017-02-20] MEDS ORDERED: FERR325T8 PO (11:37)
[2017-02-20] MEDS ORDERED: HYDR-3799 PO (11:38)
[2017-02-20 12:00] VITALS: BP 123/64; PULSE 76; RESP 16; TEMP 98.3; O2SAT 99
--- NOTE | 2017-02-20 13:16 | MD ---
cc: SAMIRA KEITA MD ADMISSION DATE: 02/13/2017 DISCHARGE DATE: 02/20/2017 [place] Visit Search.Discharge Date DISPOSITION Okay to discharge the patient home with home health care. Condition at the time of discharge: Satisfactory. Activity: As tolerated. Diet: Cardiac diet. ALLERGIES No known drug allergies. DISCHARGE MEDICATIONS 1. Amlodipine 10 mg p.o. daily. 2. Vitamin-B12 5000 mcg p.o. daily. 3. Ferrous sulfate 325 mg twice a day. 4. Hydralazine 10 mg p.o. q.8h. The patient was advised to follow up with PCP, nephrology and urology in week. ADMITTING DIAGNOSIS 1. Acute renal failure, most likely secondary to outflow tract obstruction. The patient is status post Montoya catheter in and renal function improved. The patient was given Flomax and started on Flomax and avoided nephrotoxic medication. The patient's phosphorus level was checked. Acidosis improved. The patient remained stable. The patient had an elevated PSA. Urology seen the patient. The patient is status post Montoya catheter placement. 2. Anemia secondary to iron deficiency for which he was started on iron. 3. B12 deficiency, started on B12 replacement. 4. Hypertension. The patient was started on Norvasc and hydralazine. HOSPITAL COURSE The patient was seen by nephrology and urology. The patient had urinary retention secondary to obstructive prostate and bilateral hydronephrosis related to bladder outlet obstruction. The patient's kidney function improved. The patient had an elevated PSA. A Montoya catheter was placed and need to discharge with the Montoya catheter. The patient was advised to follow with urology for cystoscopy. Nephrology saw the patient. The patient was discharged in satisfactory condition. The patient was admitted with a creatinine of 5.45 and discharged with a creatinine of 3.68. The patient had a PSA of 9.41. The patient was advised to follow with urology. The patient verbalized understanding. The patient was iron deficient and was started on iron. The patient's PT was 11.2, INR 1.0, APTT 26.6. The patient had a urinalysis done that showed small leukocyte esterase but only 3 wbc in the urine. The patient had anemia with a hemoglobin of 8.6 and 8.9. Further details are in the medical record. MD SAPPHIRE Yancey /10:25 AM /12:55 PM
[2017-02-20 16:00] VITALS: BP 119/71; PULSE 75; RESP 16; TEMP 98; O2SAT 99
--- NOTE | 2017-02-20 16:44 | HHI.NPPN ---
Subjective General Problems: Anemia Renal Failure: Chronic, Acute, Stage IV Interval History Seen at 1000. No acute concerns. (Kenyatta Gramajo) Review of Systems General Constitutional: Fatigue (Kenyatta Gramajo) Objective Data Data 02/20/17 02/21/17 19:00 07:00 Output Total 900 ml Balance -900 ml Output Urine Total 900 ml Vital Signs Date Time Temp Pulse Resp B/P (MAP) Pulse Ox O2 Delivery O2 Flow Rate FiO2 02/20/17 16:00 98.0 75 16 119/71 (87) 99 02/20/17 12:00 98.3 76 16 123/64 (83) 99 02/20/17 08:00 97.4 76 16 124/72 (89) 100 02/20/17 04:00 96.7 74 17 112/70 (84) 100 02/20/17 00:00 97.1 73 17 129/72 (91) 100 02/19/17 20:00 97.3 73 17 126/69 (88) 100 (Kenyatta Gramajo) -: 02/18/17 0309 02/18/17 0309 Tubes & Lines: Santamaria (Kenyatta Gramajo) Physical Exam General Appearance: Well Developed, Well Nourished, No Acute Distress, Comfortable (Kenyatta Gramajo) Eyes Eye Exam: Sclera White, Extraocular Movement Intact (Kenyatta Gramajo) Throat Throat Exam: Oral Mucosa [place] & Moist, Oral Pharynx Normal (Kenyatta Gramajo) Neck Neck Exam: Neck Supple, Trachea Midline (Kenyatta Gramajo) Pulmonary Resp Exam: Clear Bilaterally, Breath Sounds Equal, No Distress (Kenyatta Gramajo) Cardiology CV Exam: Regular, Normal Sinus Rhythm (Kenyatta Gramajo) Gastrointestinal/Abdomen GI Exam: Soft, Non-Tender, Bowel Sounds Present (Kenyatta Gramajo) Genitourinary Remarks hematuria resolving (Kenyatta Gramajo) Musculoskeletal MS Exam: Joints Intact, Normal Tone, Good Strength (Kenyatta Gramajo) Integumentary Skin Exam: Clear, Warm, Dry, Intact (Kenyatta Gramajo) Extremeties Extremities Exam: No Edema, Pedal Pulses Palpable (Kenyatta Gramajo) Neurologic Neuro Exam: Alert, Awake, Oriented, Speech Clear, Moving All Extremities, No Focal Deficits (Kenyatta Gramajo) Psychiatric Psych Exam: Appropriate Responses (Kenyatta Gramajo) PUD Prophylasis PUD Prophylaxis: Protonix (Kenyatta Gramajo) Assessment/Plan Discussed Condition With: Patient Assessment Summary: HAI/Acute Renal Failure, Anemia of CKD, Hypertension, CKD Stage IV Problem List: (1) Acute kidney injury superimposed on CKD ICD Codes: N17.9 - Acute kidney failure, unspecified; N18.9 - Chronic kidney disease, unspecified Status: Acute Plan: It appears he has underlying CKD 4, with no prior proteinuria suggesting underlying nephrosclerosis (serum electrophoresis is normal) Baseline creatinine 2.6 HAI from obstructive uropathy, s/p santamaria placement started on Flomax renal function has been stable, improved from admission cleared for discharge with follow up below urology has evaluated, will see in 2 weeks outpatient; He will be discharged with catheter cleared for discharge, we will follow in 4 weeks in CKD clinic. (2) Anemia ICD Codes: D64.9 - Anemia, unspecified Status: Acute Plan: ordered IV and PO iron (3) Hypertension ICD Codes: I10 - Essential (primary) hypertension Status: Acute Plan: started on Norvasc and hydralazine likely will give MARTINA outpatient BP stable (Kenyatta Gramajo) Plan patient was seen and examined. Agree with above assessment and plan. (Brenden Lora MD) Kenyatta Gramajo Feb 20, 2017 16:44 Brenden Lora MD Feb 20, 2017 22:06
[2017-04-09] MEDS ORDERED: CEPH-459 PO (13:48)
[2017-04-09] MEDS ORDERED: PERC5TAB12 PO (13:48)
== END 2017-02-20 18:43 | disposition home health service (06) | DRG 683 ==
LOC: NEPC 15:43 → NEDA 22:09 → OBSVTOIN 23:28 → NEPFCDU 02-14 02:31 → N07A 02-15 00:38
PROVIDERS: ADMIT Family Medicine; ATTEND Family Medicine
PROC: 0T9B70Z Drainage of Bladder with Drainage Device, Via Natural or Artificial Opening (ICD-10-PCS; principal; 2017-02-14)
DX: N17.9 Acute kidney failure, unspecified (principal); E87.2 Acidosis; I12.9 Hypertensive chronic kidney disease with stage 1 through stage 4 chronic kidney disease, or unspecified chronic kidney disease; N18.4 Chronic kidney disease, stage 4 (severe); N32.0 Bladder-neck obstruction; R33.8 Other retention of urine; N13.39 Other hydronephrosis; N40.1 Benign prostatic hyperplasia with lower urinary tract symptoms; R31.9 Hematuria, unspecified; R97.20 Elevated prostate specific antigen [PSA]; E53.8 Deficiency of other specified B group vitamins; E55.9 Vitamin D deficiency, unspecified; D50.9 Iron deficiency anemia, unspecified; F17.220 Nicotine dependence, chewing tobacco, uncomplicated; M19.90 Unspecified osteoarthritis, unspecified site; M10.9 Gout, unspecified
CPT/HCPCS: 71010; 76775; 80048; 80053; 81001; 82272; 82607; 82728; 82746; 83540; 83550; 83735; 84100; 84153; 84165; 85025; 85044; 85610; 85730; 93005; 99285; J1644; J1756; J7030

== ENCOUNTER → 2017-04-09 | Day surgery (SDC) | payer MEDICARE ==
[~2017-04-09] VITALS: Ht 175.3 cm; Wt 67.8 kg
[~2017-04-09] MED LIST: AMLO10 PO; CEPH-459 PO; CHLORHEXIDINE GLUCONATE 2 % 1 PACK (2 CLOTHS) TOPICAL PRN; DO NOT ADM ANY ANTICOAGULANT DRUGS PRN; FERR325T20 PO; HYDR-3799 PO; INSULIN HUMAN REGULAR 1,000 UNITS/10 ML VIAL SQ PRN; LACTATED RINGER'S 1000 ML IV PRN; LIDOCAINE HCL 1% PF 5 ML AMPULE OTHER ONE; METOPROLOL TARTRATE 25 MG TAB PO PRN; ONDANSETRON HCL 4 MG/2 ML VIAL IV PUSH ONE; ONDANSETRON HCL 4 MG/2 ML VIAL IV PUSH PRN; PERC5TAB12 PO; POVIDONE IODINE 5% (ANTISEPSIS KIT) 4 APPLICATIONS EACH NARE PRN; PROPOFOL 200 MG/20 ML AMP IV ONE; SODIUM CHLORID 0.9% 500 ML IV PRN; VITA1000 PO; VITA10002 PO; VITATAB43 PO; ceFAZolin 1,000 MG/NS 100 ML IV SCH; oxyCODONE/ACETAMINOPHEN 5 MG/325 MG TAB PO PRN
[2017-04-09 11:07] LABS: BASOPHIL # 0.1 TH/MM3 (0-0.2); BASOPHIL % 0.7 % (0.0-2.0); EOSINOPHIL # 0.6 TH/MM3 (0-0.4); EOSINOPHIL % 5.6 % (0.0-4.0); HEMATOCRIT 28.6 % (39.0-51.0); HEMO FLAGS DIFF FINAL; LYMPH % 32.9 % (9.0-44.0); LYMPHOCYTE # 3.3 TH/MM3 (1.0-4.8); MEAN CELL VOLUME 82.1 FL (80.0-100.0); MEAN CORPUSCULAR HEMOGLOBIN 26.4 PG (27.0-34.0); MEAN CORPUSCULAR HGB CONC 32.1 % (32.0-36.0); NEUT % 49.8 % (16.0-70.0); PLATELET COUNT 242 TH/MM3 (150-450); RED BLOOD COUNT 3.49 MIL/MM3 (4.50-5.90); RED CELL DISTRIBUTION WIDTH 14.7 % (11.6-17.2)
--- NOTE | 2017-04-09 13:47 | PD.OP ---
Operative Report Date of Surgery: Apr 09, 2017 Preoperative Diagnosis: (1) BPH (benign prostatic hypertrophy) with urinary obstruction Postoperative Diagnosis: (1) BPH (benign prostatic hypertrophy) with urinary obstruction Procedure: Cystoscopy and transurethral resection of the prostate Anesthesia: General Surgeon: Duane Yuen Submarine Worker(s): None Operation and Findings: Indication for procedure: Case of a pleasant 71-year-old gentleman with obstructing BPH who presents now to undergo cystoscopy and a transurethral resection of the prostate. Operative procedure in detail: Patient was brought to the operating suite and placed supine on the OR table. He was then placed under general anesthesia. He was then repositioned in the dorsal lithotomy position and prepped and draped in normal sterile fashion. After appropriate timeout was undertaken I proceeded with cystoscopic evaluation utilizing the rigid cystoscope with the 20 [place] sheath and 30 lens. Urethra was patent without stricture formation, the prostatic urethra was markedly obstructed due to a significantly large prostate with apposition of the lateral lobes at increased prostatic urethral length. Further passes cystoscope within the urinary bladder revealed both right and left ureteral orifice is in correct anatomic position effluxing clear yellow urine. The bladder itself was markedly trabeculated with cellule formation. I next exchanged the cystoscope for the resectoscope with the 24 [place] bipolar cutting loop and normal saline irrigation was utilized. The patient then underwent a transurethral resection of the obstructing prostatic tissue. Care was taken to avoid any inadvertent vaporization of tissue the vicinity of the ureteral orifices beyond the verumontanum thus preserving the integrity of the external sphincter. Once the obstructing tissue was resected, the bladder evacuator was utilized to extract the resected tissue which was sent off to pathology. Repeat visualization within the prostatic urethra failed to demonstrate any active bleeding. A 22 [place] 30 cc [place] catheter was placed with 35 cc inflated in the balloon and the catheter placed to gravity drainage. The patient tolerated the procedures without complications and was transferred to the PACU in satisfactory condition. Duane Yuen MD Apr 09, 2017 13:47
[2017-04-09 15:50] VITALS: BP 146/84; PULSE 87; RESP 16; TEMP 97.4; O2SAT 100
== END | disposition home or self-care (01) ==
LOC: HSDC 09:25
PROVIDERS: ATTEND Urology
DX: N41.1 Chronic prostatitis (principal); N40.1 Benign prostatic hyperplasia with lower urinary tract symptoms; N13.8 Other obstructive and reflux uropathy
CPT/HCPCS: 00914; 36415; 52601; 85025; 88305; J0690; J2405; J3010; J7120; 88307